=== PATIENT | female | born 1985 | race Caucasian/White ===

== ENCOUNTER 2022-07-03 09:02 | Outpatient (CLI) | payer OTHER, SELFPAY ==
[2022-07-03 10:07] LABS: Kit Draw Collected
== END 2022-07-03 09:03 | disposition home or self-care (01) ==
LOC: ANHGOSHLAB 09:05
PROVIDERS: PCP Internal Medicine; Visit Provider Clinical Nurse Specialist
DX: N93.9 Abnormal uterine and vaginal bleeding, unspecified (principal); R73.9 Hyperglycemia, unspecified; Z13.220 Encounter for screening for lipoid disorders; E55.9 Vitamin D deficiency, unspecified; M35.3 Polymyalgia rheumatica
CPT/HCPCS: 36415

== ENCOUNTER 2023-12-11 08:37 | Outpatient (CLI) | payer BC, SELFPAY ==
--- NOTE | ~2023-12-11 | XR_ITS ---
XR hand LT 2V Ordering provider: Meaghan Linton, PA History: . Pain in unspecified joint, Other fatigue . Comparison: None. FINDINGS: BONES: No acute fracture or dislocation. JOINT SPACES: Well maintained. SOFT TISSUES: Unremarkable. IMPRESSION: No acute osseous abnormality left hand. Reviewed, dictated and finalized at location A.
--- NOTE | ~2023-12-11 | XR_ITS ---
XR hip RT min 2V Ordering provider: Meaghan Linton, PA History: . Pain in unspecified joint, Other fatigue . Comparison: None. FINDINGS: BONES: No acute fracture or dislocation. HIP JOINT SPACES: Normal. PUBIC SYMPHYSIS: Normal. SOFT TISSUES: Normal. IMPRESSION: No acute osseous abnormality pelvis and right hip. Reviewed, dictated and finalized at location A.
--- NOTE | ~2023-12-11 | XR_ITS ---
XR foot RT 2V Ordering provider: Meaghan Linton, PA History: . Pain in unspecified joint, Other fatigue . Comparison: None. FINDINGS: BONES: No acute fracture or dislocation. Calcaneus spur. 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 JOINT SPACES: Normal. No tarsal coalition. SOFT TISSUES: Normal. IMPRESSION: No acute osseous abnormality of the right foot. Reviewed, dictated and finalized at location A.
--- NOTE | ~2023-12-11 | XR_ITS ---
XR hand RT 2V Ordering provider: Meaghan Linton, PA History: . Pain in unspecified joint, Other fatigue . Comparison: None. FINDINGS: BONES: No acute fracture or dislocation. JOINT SPACES: Normal. SOFT TISSUES: Normal. IMPRESSION: No acute osseous abnormality right hand. Reviewed, dictated and finalized at location A.
--- NOTE | ~2023-12-11 | XR_ITS ---
XR foot LT 2V Ordering provider: Meaghan Linton, PA History: . Pain in unspecified joint, Other fatigue . Comparison: None. FINDINGS: BONES: No acute fracture or dislocation. Calcaneal spur. JOINT SPACES: Normal. No tarsal coalition. SOFT TISSUES: Normal. IMPRESSION: No acute osseous abnormality left foot. Reviewed, dictated and finalized at location A.
== END 2023-12-11 08:38 ==
PROVIDERS: PCP Physician Assistant Medical; Visit Provider Physician Assistant Medical
DX: R53.83 Other fatigue (principal); M25.50 Pain in unspecified joint
CPT/HCPCS: 73120; 73502; 73620

== ENCOUNTER 2024-09-22 06:46 | Outpatient (CLI) | payer BC, SELFPAY ==
--- NOTE | ~2024-09-22 | MR_ITS ---
EXAMINATION: MR brain/brain stem wo/w con DATE: 09/22/2024 07:28 INDICATION: Migraine, unspecified, not intractable. TECHNIQUE: Magnetic resonance imaging (MRI) of the brain and brainstem was performed without and with 20 mL ProHance intravenous contrast. COMPARISON: None. FINDINGS: There are scattered areas of nonspecific increased T2-weighted signal intensity in the cere bral white matter, which is within normal limits for the patient's age. There is no intracranial hemo rrhage, acute infarction, or abnormal intracranial mass lesion. The ventricles are normal in size. Th e orbits are normal. The paranasal sinuses are clear. The mastoid air cells are normal. IMPRESSION: 1. Normal brain. Reviewed, dictated and finalized at location A. IMPRESSION: 1. Normal brain.
--- OUTSIDE RECORDS SUMMARY | 2024-09-22 06:51 | XMS_ITS | Referral Summary ---
Author Organization [facility] [address] Address [address] [place] [address] Care Team Providers Care Material Coordinator Name Role Phone Demetrio Kirby DO Primary Care Provider [phone] Marco Williamson MD Unavailable [phone] Encounters Date Type Department Care Team Description 08/30/2024 4:00 PM BOW STAPLER Lab [facility] - Lab Collection [address] [place] [address] Abnormal uterine bleeding (AUB) 08/30/2024 3:45 PM BOW STAPLER Lab [facility] Oncology Lab [address] [place] [address] [address] [place] [address] 08/30/2024 3:15 PM BOW STAPLER Office Visit [facility] Hematology [address] [place] [phone] Aj Simeon MD Abnormal uterine bleeding (AUB); Coagulation test abnormality 08/23/2024 Telephone [facility] Hematology [address] [place] [phone] Liv Land 07/27/2024 9:35 AM BOW STAPLER - 07/27/2024 11:59 PM BOW STAPLER Hospital Encounter [facility] PATHOLOGY [address] [address] Abnormal uterine bleeding (AUB) Discharge Disposition: Discharge to home or self care 07/27/2024 9:00 AM BOW STAPLER Procedure visit [facility] Obstetrics and Gynecology [address] [facility] 1st Floor [address] [place] [address] Yelena Henley MD Abnormal uterine bleeding (AUB) (Primary Dx); Urine test negative 07/13/2024 3:03 PM BOW STAPLER - 07/13/2024 11:59 PM BOW STAPLER Hospital Encounter [facility] [address] [place] [address] Screening mammogram, encounter for Discharge Disposition: Discharge to home or self care from Last 3 Months Allergies Active Allergy Reactions Criticality Noted Date Comments Adhesive Hives Medium 07/15/2022 Paper tape ok, all other types of tape remove layer of skin Sulfa (Sulfonamide Antibiotics) Hives Medium 09/14/2017 Hives Medications cyanocobalamin (Vitamin B-12) 50 mcg tabletIndicati ons:supplement Take 1 tablet (50 mcg total) by mouth every morning Active TIRZEPATIDE, WEIGHT LOSS, SUBQIndication s:wt loss Inject 30 Units under the skin once a week Wednesdays Active ferrous sulfate (IRON ORAL)Indicatio ns:supplement Take 1 tablet by mouth every morning Active progesterone (PROMETRIUM) 100 mg capsule Take 1 capsule (100 mg total) by mouth daily 90 capsule 2 5 07/25/19 26 Active Additional Information Patient taking differently:100 mg oralEvery evening, Indications: Secondary Amenorrhea, Informant: Self, Reported on 09/01/2024 tretinoin (RETIN-A) 0.025 % creamIndicatio ns:Acne Vulgaris Apply 1 Application topically nightly 5 Active cholecalcifero l (Vitamin D3) 5,000 unit tabletIndicati ons:supplement Take 1 tablet (5,000 Units total) by mouth every morning Active magnesium gluconate 200 mg tabletIndicati ons:hypomagnes emia Take 1 tablet (200 mg total) by mouth every evening Active cholecalcifero l 25 mcg (1,000 unit) tablet Take 1 tablet (1,000 Units total) by mouth daily 09/02/19 25 Discontin ued(Thera py completed ) Active Problems Problem Noted Date Diagnosed Date Abnormal uterine bleeding (AUB) 05/29/2024 Polyarthralgia 12/10/2023 Overview (12/17/2023): 11/2023 labs: AVISE JENNI 1:160 (nuclear, homogenous), anti-CL IgM 16 (weak+), anti-B2 glycoprotein IgM 11 (weak+), C3 160 (H), C4 24 11/2023 XR: -Bilat hands: unremarkable -Rt hip: unremarkable -Rt foot: ossification of insertion of the Achilles tendon -Lt foot: calcaneal spur US right hand/wrist (12/16/23): No significant joint effusions, power doppler, tendinopathy, or erosive changes appreciated on US examination. Moderate synovial thickening in the 4th MCP and 3rd PIP joints. An enlarged median nerve at 0.14 cm2 is identified. Assessment & Plan (02/11/2024 4:58 PM CDT): Ms. Bhandari is a 38yo female with PMH of anemia, migraine and DSAP who presented at last visit for evaluation for joint pain and elevated inflammatory markers. Affected joints include her hands, feet and a right lateral hip. Hands are swollen in the AM with associated stiffness that lasts for about 1-1.5hrs before resolving but notes her fingers ache with overuse. Appreciates persistent discomfort across midfeet, worsened with prolonged walking but denies AM swelling. Takes 800mg ibuprofen prn with benefit. Does have a red, bumpy rash that appears on her cheeks/nose but spares the nasolabial folds and worsens with heat/stress - not photosensitive. Additional symptoms/concerns include fatigue, dry/itchy eyes, brain fog, IBS like symptoms, hair loss and ocular migraines. FH significant for mother with RA/SLE and father with RA. Recent autoimmune testing revealed a +JENNI 1:160 with weak positive anti- cardiolipin 16 and anti-beta2 glycoprotein 11. Radiographic imaging of her hands and right hip were unremarkable with a calcaneal spur visualized on the left foot and ossification of the Achilles tendon insertion of the right foot XR. A right hand/wrist US demonstrated only moderate synovial thickening of the 4th MCP and 3rd PIP joints with enlarged median nerve at 0.14cm2 - no significant joint effusions, power doppler, tendinopathy or erosive changes were noted. Based on work up and description of symptoms the patient does not appear to have an underlying autoimmune disease contributing to her symptoms at this time. Would recommend close monitoring of her symptoms given her strong FH for RA/SLE. She is welcome to return in the future for additional evaluation should the need arise. Seen with Dr. Williamson. Assessment & Plan (12/10/2023 3:14 PM CDT): Ms. Bhandari is a 38yo female with PMH of anemia, migraine and DSAP who presents for evaluation for joint pain and elevated inflammatory markers. Affected joints include her hands, feet and a right lateral hip. Hands are swollen in the AM with associated stiffness that lasts for about 1-1.5hrs before resolving but notes her fingers ache with overuse. appreciates persistent discomfort across midfeet, worsened with prolonged walking but denies AM swelling. Takes 800mg ibuprofen prn with benefit. Does have a red, bumpy rash that appears on her cheeks/nose but spares the nasolabial folds and worsens with heat/stress - not photosensitive. Additional symptoms/concerns include fatigue, dry/itchy eyes, brain fog, IBS like symptoms, hair loss and ocular migraines. FH significant for mother with RA/SLE and father with RA. Questionable fullness of the right 1st MCP joint and left 2nd PIP joint on exam with several tender peripheral joints. Erythema with telangiectasias of the bilateral cheeks present sparing the nasolabial folds. There is ttp along the right lateral pelvic rim/ITband origin without ttp over the greater trochanter or ITband. Patient's description of joint symptoms do not sound inflammatory and with a negative JENNI she does not likely have lupus. 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 Will check a broader autoimmune AVISE panel as well as repeat ESR/CRP (which may be influenced due to adiposity) and obtain radiographic imaging of her hands, feet, right hip and a right hand/wrist US to evaluate her joint pain and look for signs of inflammation. To return in [address] Williamson. Pain in pelvis 09/13/2022 Immunizations Immunization Administration Dates Next Due DTaP, Unspecified 11/04/2017 Influenza, Quadrivalent, Melissa l Culture-based MDCK, Preservative Free, Antibiotic Free, Intramuscular 04/07/2023,03/31/2022 Influenza, Quadrivalent, Spl it, Preservative Free, Intramuscular 05/16/2021 MMR 11/24/2018 Moderna SARS-CoV-2 Monovalent Vaccination (12+ Y RS) 03/31/2022 Tdap 03/03/2018 Social History Tobacco Use Types Packs/Day Years Used Date Smoking Tobacco: Never Passive Smoke Exposure: Never Smokeless Tobacco: Never Tobacco Cessation:Counseling Given: Not Answered Comments No Sex and Gender Information Value Date Recorded Sex Assigned at Not on file Legal Sex Female 9:12 PM BOW STAPLER Gender Identity Not on file Sexual Orientation Not on file Last Filed Vital Signs Vital Sign Reading Time Taken Comments Blood Pressure 168/96 08/30/2024 3:08 PM BOW STAPLER Pulse 92 08/30/2024 3:08 PM BOW STAPLER Temperature 36.4 C (97.6 F) 08/30/2024 3:08 PM BOW STAPLER Respiratory Rate 18 08/30/2024 3:08 PM BOW STAPLER Oxygen Saturation 100% 08/30/2024 3:08 PM BOW STAPLER Inhaled Oxygen Concentration - - Weight 134.7 kg (297 lb) 09/01/2024 2:45 PM BOW STAPLER Height 167.6 cm (5' 6 ) 09/01/2024 2:45 PM BOW STAPLER Body Mass Index 47.94 09/01/2024 2:45 PM BOW STAPLER Plan of Treatment Upcoming Encounters Date Type Department Care Team (Latest Contact Info) Description 09/26/2024 7:30 AM CDT Hospital Encounter [facility] Operating [facility] [address] [place] [phone] [place] [address] [place] [address] 09/26/2024 7:30 AM CDT Anesthesia Event [facility]) [address] [place] [address] Peggy Sarkar NP [address] [place] [address] 09/26/2024 7:30 AM CDT - 09/26/2024 8:50 AM CDT Surgery [facility]) [facility] [place] [address] Yelena Henley MD [address] [address] HYSTEROSCOPY DIAGNOSTIC, DILATION AND CURETTAGE Scheduled Procedures Name Priority Associated Diagnoses Date/Ti me HYSTEROSCOPY DIAGNOSTIC Abnormal uterine bleeding (AUB) 09/26/2024 7:30 AM CDT DILATION AND CURETTAGE Abnormal uterine bleeding (AUB) 09/26/2024 7:30 AM CDT Procedures Procedure Name Priority Date/Time Associated Diagnosis Comments EGFR Routine 08/30/2024 4:24 PM BOW STAPLER Abnormal uterine bleeding (AUB) DIFFERENTIAL AUTO Routine 08/30/2024 4:2 4 PM BOW STAPLER Abnormal uterine bleeding (AUB) CBC WITH AUTO DIFFERENTIAL Routine 08/30/2024 4:24 PM BOW STAPLER Abnormal uterine bleeding (AUB) COMPREHENSIVE METABOLIC PANEL Routine 08/30/2024 4:24 PM BOW STAPLER Abnormal uterine bleeding (AUB) FERRITIN Routine 08/30/2024 4:24 PM BOW STAPLER Abnormal uterine bleeding (AUB) IRON PROFILE W/ IBC Routine 08/30/2024 4 :24 PM BOW STAPLER Abnormal uterine bleeding (AUB) MAGNESIUM Routine 08/30/2024 4:24 PM BOW STAPLER Abnormal uterine bleeding (AUB) APTT Routine 08/30/2024 4:24 PM BOW STAPLER Abnormal uterine bleeding (AUB) PROTIME-INR Routine 08/30/2024 4:24 PM BOW STAPLER Abnormal uterine bleeding (AUB) FIBRINOGEN Routine 08/30/2024 4:24 PM BOW STAPLER Abnormal uterine bleeding (AUB) FACTOR VIII ACTIVITY Routine 08/30/2024 4:24 PM BOW STAPLER Abnormal uterine bleeding (AUB) FACTOR IX ACTIVITY Routine 08/30/2024 4: 24 PM BOW STAPLER Abnormal uterine bleeding (AUB) VON WILLEBRAND FACTOR ACTIVITY (SCREEN) Routine 08/30/2024 4:24 PM BOW STAPLER Abnormal uterine bleeding (AUB) VON WILLEBRAND FACTOR ANTIGEN Routine 08/30/2024 4:24 PM BOW STAPLER Abnormal uterine bleeding (AUB) FACTOR XI ACTIVITY Routine 08/30/2024 4: 24 PM BOW STAPLER Abnormal uterine bleeding (AUB) BETA 2 GLYCOPROTEIN IGG AB Routine 08/30/2024 4:24 PM BOW STAPLER Abnormal uterine bleeding (AUB) BETA 2 GLYCOPROTEIN IGM AB Routine 08/30/2024 4:24 PM BOW STAPLER Abnormal uterine bleeding (AUB) CARDIOLIPIN ANTIBODY, IGG Routine 08/30/2024 4:24 PM BOW STAPLER Abnormal uterine bleeding (AUB) CARDIOLIPIN ANTIBODY, IGM Routine 08/30/2024 4:24 PM BOW STAPLER Abnormal uterine bleeding (AUB) LUPUS ANTICOAGULANT PANEL PLUS REFLEXES Routine 08/30/2024 4:24 PM BOW STAPLER Abnormal uterine bleeding (AUB) SURGICAL PATHOLOGY Routine 07/27/2024 9: 35 AM BOW STAPLER Abnormal uterine bleeding (AUB) POCT HCG, URINE Routine 07/27/2024 9:07 AM BOW STAPLER Urine test negative SCREENING MAMMOGRAM BILATERAL W KISHOR Schedule Routine, Read Routine (OP Routine) 07/13/2024 3:17 PM BOW STAPLER Screening mammogram, encounter for from Last 3 Months Results * (ABNORMAL) Lupus Anticoagulant Panel plus Reflexes (08/30/2024 4:24 PM BOW STAPLER) PT 12.2 9.7 - 13.0 sec INR 1.13 0.90 - 1.20 [facility] Comment: Interpretive data Oral anticoagulant therapeutic ranges: Venous thromboembolism prophylaxis or treatment: 2.0-3.0 CARDIOLOGY Standard range: 2.0-3.0 High-intensity range: 2.5-3.5 Refer to indication-specific guidelines for appropriate target ranges for prosthetic heart valve replacement. Current interpretive data was last revised on 2019. aPTT 44(H) 28 - 38 sec [facility] Comment: Interpretive Data Heparin therapeutic range: 66.0 - 100.0 seconds. Range based on correlation with therapeutic heparin activity range of 0.3 - 0.7 Units/mL. Current interpretive data was last revised on 2023. DRVVT screen ratio 1.46(H) 0.00 - 1.20 Ratio [facility] DRVVT confirm ratio 1.03 Ratio [facility] DRVVT S/C Ratio 1.41(H) 0.00 - 1.20 Ratio [facility] SCT Screen Ratio 1.86(H) 0.00 - 1.16 Ratio [facility] SCT Confirm Ratio 1.18 Ratio [facility] SCT S/C Ratio 1.58(H) 0.00 - 1.16 Ratio [facility] Lupus anticoagulant, interp Positive( A) [facility] Comment: Interpretive data Lupus anticoagulants (LA) are acquired autoantibodies that interfere with invitro clotting in a phospholipid-dependent manner and are associated with an increased risk of thromboembolic events and complications. Routine APTT and PT reagents are not sensitive to inhibition by LA, and should not be used as screening tests. The laboratory follows ISTH 2009 guidelines (Pengo, 2009) for LA testing and interpretation: Two sensitive methods performed in parallel improve sensitivity. One activates the intrinsic pathway (Silica-APTT) and one activates the common pathway (dilute Zion's viper venom time - dRVVT). Each method begins with a SCREEN step, and if neither is prolonged, no further testing is performed and the interpretation is: NO LA DETECTED. If either screening test is prolonged, then additional steps are performed to provide specificity. A POSITIVE LA result occurs if either one or both tests produce a positive CONFIRM result. An INDETERMINATE result means results cannot distinguish between coagulopathy and a weak LA. Consider retesting when PT/INR is less prolonged, if clinical indicated. To support laboratory confirmation of antiphospholipid syndrome, persistence of a positive LA result should be verified by repeat testing at least 12 weeks later (Idalia, 2006). Prior to LA testing, the laboratory screens patient plasma samples for evidence of heparin contamination, which is neutralized prior to LA testing, and the following interfering conditions which require canceling LA testing: INR >3.0, fibrinogen < 100 mg/dl, use of direct oral or IV anticoagulants other than heparin. References: 1) Hans V, Skye A, Lizette JH, Orlincoln TL, Shant M, De Thalia PG. Update of the guidelines for lupus anticoagulant detection. J Thromb Haemost. 2009; 7:5721-9560. 2. Idalia Glass et al. International consensus statement on an update of the classification criteria for definite antiphospholipid syndrome (APS). J Thromb Haemost. 2006; 4:295-306. Current interpretive data was last revised on 2018 Blood 08/30/2024 4:24 PM BOW STAPLER 08/30/2024 5:09 PM BOW STAPLER us Aj Simeon MD LAB BLOOD ORDERABLES Final R esult [facility] Department [place] [address] * eGFR (08/30/2024 4:24 PM BOW STAPLER) eGFR 80 >=60 mL/min/1. 73 m2 Comment: Interpretive Data Reference Interval Normal >/= 90 mL/min/1.73m2 Mildly decreased* 60 - 89 mL/min/1.73m2 Mildly to moderately decreased 45 - 59 mL/min/1.73m2 Moderately to severely decreased 30 - 44 mL/min/1.73m2 Severely decreased 15 - 29 mL/min/1.73m2 Kidney Failure < 15 mL/min/1.73m2 *Relative to young adult level Estimated glomerular filtration rate is determined by the 2020 CKD-EPI equation recommended by the National Kidney Foundation (A Unifying Approach to GFR Estimation: Recommendations of the NKF-ASK Task Force on Reassessing the Inclusion of Race in Diagnosing Kidney Disease, JASN 2020). The CKD-EPI equation should not be used for patients with unstable renal function and has not been validated in children and those over 70. Current interpretive data was last reviewed 2021. Blood 08/30/2024 4:24 PM BOW STAPLER 08/30/2024 5:14 PM BOW STAPLER us Aj Simeon MD LAB BLOOD ORDERABLES Final R esult [facility] Department [place] [address] * (ABNORMAL) Differential, auto (08/30/2024 4:24 PM BOW STAPLER) Neutrophil abs 7.0(H) 1.5 - 6.5 K/cumm Comment:Testing performed by : [facility], [address] [place] [phone] Lymphocyte abs 2.0 0.8 - 3.3 K/cumm CERNER BJ Comment:Testing performed by : [facility], [address] [place] [phone] Monocyte abs 0.5 0.2 - 0.8 K/cumm CERNER BJ Comment:Testing performed by : [facility], [address] [place] [phone] Eosinophil abs 0.1 0.0 - 0.5 K/cumm CERNER BJ Comment:Testing performed by : [facility], [address] [place] [phone] Basophil abs 0.1 0.0 - 0.1 K/cumm CERNER BJ Comment:Testing performed by : [facility], [address] [place] [phone] Neutrophil pct 72.4 % CERNER BJ Comment: Interpretive Data Percent cell count reference ranges are not reported, since discordance with absolute values may lead to misinterpretation of CBC data. Current Interpretive Data was last revised on 2017. Testing performed by: [facility], [address] [place] [phone] Lymphocyte pct 20.2 % [facility] Comment: Interpretive Data Percent cell count reference ranges are not reported, since discordance with absolute values may lead to misinterpretation of CBC data. Current Interpretive Data was last revised on 2017. Testing performed by: [facility], [address] [place] [phone] Monocyte pct 5.3 % [facility] Comment: Interpretive Data Percent cell count reference ranges are not reported, since discordance with absolute values may lead to misinterpretation of CBC data. Current Interpretive Data was last revised on 2017. Testing performed by: [facility], [address] [place] [phone] Eosinophil pct 1.2 % [facility] Comment: Interpretive Data Percent cell count reference ranges are not reported, since discordance with absolute values may lead to misinterpretation of CBC data. Current Interpretive Data was last revised on 2017. Testing performed by: [facility], [address] [place] [phone] Basophil pct 0.9 % [facility] Comment: Interpretive Data Percent cell count reference ranges are not reported, since discordance with absolute values may lead to misinterpretation of CBC data. Current Interpretive Data was last revised on 2017. Testing performed by: [facility], [address] [place] [phone] Blood 08/30/2024 4:24 PM BOW STAPLER 08/30/2024 4:28 PM BOW STAPLER us Aj Simeon MD LAB BLOOD ORDERABLES Final R esult [facility] Department [place] [address] * Cardiolipin antibody, IgG (08/30/2024 4:24 PM BOW STAPLER) Cardiolipin, IgG 1.8 <=19.9 GPL U/mL Comment: Interpretive Data Negative: <20 GPL U/mL Positive: > or = 20 GPL U/mL Anticardiolipin antibodies are associated with certain clinical events including unexplained arterial and venous thromboemboli, and unexplained morbidity. However, detection of low levels of anticardiolipin antibodies occurs in both healthy individuals and patients with co-morbidities not associated with the antiphospholipid antibody (APA) syndrome including inflammatory and infectious conditions. In order to improve specificity, the International Congress on Antiphospholipid Antibodies recommends ACL antibodies of IgG or IgM isotype present in medium or high titer (e.g. > 40 GPL, or >the 99th percentile), on two or more occasions, at least 12 weeks apart, to support a diagnosis of antiphospholipid syndrome. The cutoff for this assay was developed from data based on the 99th percentile. In addition, the International Congress on Antiphospholipid Antibodies does not recommend testing for IgA FADY. These results were obtained with the [employer] 2200 System. Cardiolipin IgG values obtained with different manufacturers' assay methods may not be used interchangeably. Current interpretive data was last revised on 2016. Blood 08/30/2024 4:24 PM BOW STAPLER 08/30/2024 5:56 PM BOW STAPLER us Aj Simeon MD LAB BLOOD ORDERABLES Final R esult [facility] Department [place] [address] * Beta 2 glycoprotein IgM Ab (08/30/2024 4:24 PM BOW STAPLER) [facility] Beta-2 glycoprotein I, IgM 8.3 <=19.9 units/mL Comment: Interpretive Data Negative: <20 U/mL Positive: > or = 20 U/mL Beta- 2 glycoprotein 1 (Beta-2 GP1) antibodies are a more specific marker of thrombotic risk. It is expected that some samples will be ACL positive and Beta- 2 GP1 negative. In order to improve specificity, the International Congress on Antiphospholipid Antibodies recommends Beta-2 GP1 antibodies of IgG or IgM isotype (> the 99th percentile), obtained twice, at least 12 weeks apart, to support a diagnosis of antiphospholipid syndrome. The cutoff for this assay was developed from data based on the 99th percentile. The Beta-2 GP1 IgM test can produce false positive results due to cross-reactivity with Rheumatoid factor. These results were obtained with the [employer] 2200 System. Beta-2 GP1 IgM values obtained with different manufacturers' assay methods may not be used interchangeably. Current interpretive data was last revised on 2016. Blood 08/30/2024 4:24 PM BOW STAPLER 08/30/2024 5:56 PM BOW STAPLER Aj Simeon MD LAB BLOOD ORDERABLES Final R esult Performing Organization Address [facility] Co de Phone Number [facility] [address] * Beta 2 glycoprotein IgG Ab (08/30/2024 4:24 PM BOW STAPLER) [facility] Beta-2 glycoprotein I, IgG 1.8 <=19.9 units/mL Comment: Interpretive Data Negative: <20 U/mL Positive: > or = 20 U/mL Beta-2 glycoprotein 1 (Beta-2 GP1) antibodies are a more specific marker of thrombotic risk. It is expected that some samples will be ACL positive and Beta- 2 [id number]. In order to improve specificity, the International Congress on Antiphospholipid Antibodies recommends Beta-2 GP1 antibodies of IgG or IgM isotype (> the 99th percentile), obtained twice, at least 12 weeks apart, to support a diagnosis of antiphospholipid syndrome. The cutoff for this assay was developed from data based on the 99th percentile. These results were obtained with the [employer] 2200 System. Beta 2GP1 IgG values obtained with different manufacturers' assay methods may not be used interchangeably. Current interpretive data was last revised on 2016. Blood 08/30/2024 4:24 PM BOW STAPLER 08/30/2024 5:56 PM BOW STAPLER Aj Simeon MD LAB BLOOD ORDERABLES Final R esult Performing Organization Address [facility] Co de Phone Number [facility] [place] [address] * (ABNORMAL) Iron profile w/ IBC (08/30/2024 4:24 PM BOW STAPLER) Pathologist [facility] Iron 31(L) 35 - 145 mcg/dL TIBC 202(L) 250 - 400 mcg/dL [facility] Transferrin saturation 15(L) 20 - 50 % [facility] Blood 08/30/2024 4:24 PM BOW STAPLER 08/30/2024 5:09 PM BOW STAPLER us Aj Simeon MD LAB BLOOD ORDERABLES Final R esult [facility] Department [place] [address] * (ABNORMAL) CBC with auto differential (08/30/2024 4:24 PM BOW STAPLER) [facility] WBC 9.7 3.8 - 9.9 K/cumm Comment:Testing performed by : [facility], [address] [place] [address] Hgb 12.1 11.9 - 15.5 g/dL [facility] Comment:Testing performed by : [facility], [address] [place] [address] Hct 36.3 35.6 - 45.5 % [facility] Comment:Testing performed by : [facility], [address] [place] [address] Plt 402(H) 150 - 400 K/cumm [facility] Comment:Testing performed by : [facility], [address] [place] [address] MPV 8.6 6.8 - 10.4 fL [facility] Comment:Testing performed by : [facility], [address] [place] [address] RBC 4.55 3.90 - 5.20 M/cumm [facility] Comment:Testing performed by : [facility], [address] [place] [address] MCV 79.8(L) 81.3 - 96.4 fL [facility] Comment:Testing performed by : [facility], [address] [place], [place] [phone] MCH 26.6(L) 27.1 - 33.3 pg [facility] Comment:Testing performed by : [facility], [address] [place], [place] [phone] MCHC 33.4 32.3 - 35.7 g/dL [facility] Comment:Testing performed by : [facility], [address] [place] [address] RDW CV 14.0 11.1 - 14.9 % [facility] Comment:Testing performed by : [facility], [address] [place], [place] [phone] NRBC abs 0.00 0.00 - 0.01 K/cumm [facility] Comment:Testing performed by : [facility], [address] [place], [place] [phone] Blood 08/30/2024 4:24 PM BOW STAPLER 08/30/2024 4:28 PM BOW STAPLER Aj Simeon MD LAB BLOOD ORDERABLES Final R esult Performing Organization Address City/[facility] Co de Phone Number [facility] Department [place] [address] * Von Willebrand factor antigen (08/30/2024 4:24 PM BOW STAPLER) vWF antigen 116 55 - 200 %norm Comment: Interpretive Data vWF Ag results may be negatively biased when rheumatoid factor levels are >50 IU/ml. Current interpretive data was last revised 2024. Blood 08/30/2024 4:24 PM BOW STAPLER 08/30/2024 5:09 PM BOW STAPLER Aj Simeon MD LAB BLOOD ORDERABLES Final R esult [facility] Department [place] [address] * Cardiolipin antibody, IgM (08/30/2024 4:24 PM BOW STAPLER) Cardiolipin, IgM 13.5 <=19.9 MPL U/mL Comment: Interpretive Data Negative: <20 MPL U/mL Positive: > or = 20 MPL U/mL Anticardiolipin antibodies are associated with certain clinical events including unexplained arterial and venous thromboemboli, and unexplained morbidity. However, detection of low levels of anticardiolipin antibodies occurs in both healthy individuals and patients with co-morbidities not associated with the antiphospholipid antibody (APA) syndrome including inflammatory and infectious conditions. In order to improve specificity, the International Congress on Antiphospholipid Antibodies recommends ACL antibodies of IgG or IgM isotype present in medium or high titer (e.g. > 40 MPL, or >the 99th percentile), on two or more occasions, at least 12 weeks apart, to support a diagnosis of antiphospholipid syndrome. The cutoff for this assay was developed from data based on the 99th percentile. In addition, the International Congress on Antiphospholipid Antibodies does not recommend testing for IgA FADY. The ACL IgM test can produce false positive results due to cross-reactivity with Rheumatoid factor, dsDNA or certain infectious disease antibodies. These results were obtained with the [employer]eva[employer]or 2200 System. Cardiolipin IgM values obtained with different manufacturers' assay methods may not be used interchangeably. Current interpretive data was last revised on 2016. Blood 08/30/2024 4:24 PM BOW STAPLER 08/30/2024 5:56 PM BOW STAPLER us Aj Simeon MD LAB BLOOD ORDERABLES Final R esult [facility] Department [place] [address] * Von Willebrand factor activity (08/30/2024 4:24 PM BOW STAPLER) vWF activity 98 50 - 180 %norm Comment: Interpretive Data Von Willebrand factor (vWF) has two major physiologic functions: transporting factor VIII and adhering to platelets and collagen at sites of vascular injury. Screening tests for von Willebrand disease (vWD) include measuring vWF antigen concentration, plasma factor VIII activity, and in-vitro tests of vWF activity. An automated immunoassay (Instrumentation Laboratory von Willebrand factor activity: IL vWF act), is a sensitive screening test for vWF adhesion to platelets. Using a monoclonal antibody specific for the platelet binding domain of vWF, the IL vWF act test shows excellent discrimination between control and patients with vWF(1, 2). The IL vWF activity reference interval (based on healthy adult sample) is 50%-180%. To enhance specificity and minimize false positive results, if a patient has an IL vWF activity below 50%, the reflex confirmatory activity test (vWF GP1bM) will be sent to [facility] reference laboratory in [place], [place] (3). 1. Son ENCARNACION, yasmani JENKINS. A new automated screening assay for the diagnosis of von Willebrand disease. Am J Clin Path. 2007; 127:730-5. 2. Alyson D, Linda JI, Tano BJ, Katelyn RK, Kelin TAVARES, Magda JA. Validation of an automated latex particle-enhanced immunoturbidimetric von Willebrand factor activity assay. J Thromb Haemost. 2011; 9:0038-8996. 3. Eboni Gill, et al. A comparative analysis of different automated von Willebrand factor glycoprotein 1b-binding activity assays in well-typed von Willebrand disease patients. J Thromb Haemost 2018;16:1268-77. Current interpretive data was last revised on 2021. Blood 08/30/2024 4:24 PM BOW STAPLER 08/30/2024 5:09 PM BOW STAPLER us Aj Simeon MD LAB BLOOD ORDERABLES Final R esult [facility] Department [place] [address] * (ABNORMAL) aPTT (08/30/2024 4:24 PM BOW STAPLER) aPTT 44(H) 28 - 38 sec Comment: Interpretive Data Heparin therapeutic range: 66.0 - 100.0 seconds. Range based on correlation with therapeutic heparin activity range of 0.3 - 0.7 Units/mL. Current interpretive data was last revised on 2023. Blood 08/30/2024 4:24 PM BOW STAPLER 08/30/2024 5:09 PM BOW STAPLER Aj Simeon MD LAB BLOOD ORDERABLES Final R esult Performing Organization Address [facility] de Phone Number [facility] [place] [employer] [place] [address] * Protime-INR (08/30/2024 4:24 PM BOW STAPLER) PT 11.8 9.7 - 13.0 sec INR 1.09 0.90 - 1.20 [facility] Comment: Interpretive data Oral anticoagulant therapeutic ranges: Venous thromboembolism prophylaxis or treatment: 2.0-3.0 CARDIOLOGY Standard range: 2.0-3.0 High-intensity range: 2.5-3.5 Refer to indication-specific guidelines for appropriate target ranges for prosthetic heart valve replacement. Current interpretive data was last revised on 2019. Blood 08/30/2024 4:24 PM BOW STAPLER 08/30/2024 5:09 PM BOW STAPLER Aj Simeon MD LAB BLOOD ORDERABLES Final R esult Performing Organization Address [facility] [place] [address] * (ABNORMAL) Fibrinogen (08/30/2024 4:24 PM BOW STAPLER) Fibrinogen 450(H) 170 - 400 mg/dL Blood 08/30/2024 4:24 PM BOW STAPLER 08/30/2024 5:09 PM BOW STAPLER Aj Simeon MD LAB BLOOD ORDERABLES Final R esult Performing Organization Address [facility] de Phone Number [facility] [place] [place] [address] * Factor XI activity (08/30/2024 4:24 PM BOW STAPLER) Factor XI activity 104 60 - 140 %norm Blood 08/30/2024 4:24 PM BOW STAPLER 08/30/2024 5:09 PM BOW STAPLER Aj Simeon MD LAB BLOOD [place]AB[place] [address] * Factor IX activity (08/30/2024 4:24 PM BOW STAPLER) Factor IX activity 124 55 - 160 %norm Blood 08/30/2024 4:24 PM BOW STAPLER 08/30/2024 5:09 PM BOW STAPLER Aj Simeon MD LAB BLOOD ORDERABLES Final R esult Performing Organization Address City/[facility] [place] [address] * Factor VIII activity (08/30/2024 4:24 PM BOW STAPLER) Factor VIII activity 122 45 - 160 %norm Blood 08/30/2024 4:24 PM BOW STAPLER 08/30/2024 5:09 PM BOW STAPLER Aj Simeon MD LAB BLOOD ORDERABLES Final R esult Performing Organization Address City/[facility] Co [place] [address] * Magnesium (08/30/2024 4:24 PM BOW STAPLER) Magnesium 2.0 1.4 - 2.5 mg/dL Blood 08/30/2024 4:24 PM BOW STAPLER 08/30/2024 5:09 PM BOW STAPLER Aj Simeon MD LAB BLOOD ORDERABLES Final R esult Performing Organization Address City/[facility] Co de Phone Number [facility] [place] [address] * Ferritin (08/30/2024 4:24 PM BOW STAPLER) Pathologist [facility] Ferritin 29 13 - 150 ng/mL Blood 08/30/2024 4:24 PM BOW STAPLER 08/30/2024 5:09 PM BOW STAPLER Aj Simeon MD LAB BLOOD ORDERABLES Final R [facility] Performing Organization Address [facility] de Phone Number [facility] [place] [address] * Comprehensive metabolic panel (08/30/2024 4:24 PM BOW STAPLER) [facility] Sodium 142 135 - 145 mmol/L Potassium, pl 3.9 3.3 - 4.9 mmol/L [facility] Chloride 105 97 - 110 mmol/L [facility] CO2 28 22 - 32 mmol/L [facility] Anion gap 9 2 - 15 mmol/L [facility] BUN 6 6 - 25 mg/dL [facility] Creatinine 0.93 0.60 - 1.10 mg/dL [facility] Glucose 92 70 - 199 mg/dL [facility] Comment: Interpretive Data Fasting glucose >/= 126 mg/dl is diagnostic for diabetes. Fasting is defined as no caloric intake for at least 8 hours. Fasting glucose between 100 mg/dl to 125 mg/dl is diagnostic of prediabetes. In a patient with classic symptoms of hyperglycemia or hyperglycemic crisis, a random glucose >/= 200 mg/dl is diagnostic for diabetes. In the absence of unequivocal hyperglycemia, results should be confirmed by repeat testing. The classification and Diagnosis of Diabetes Diabetes Care 2021; 46: S19-S40. Current interpretive data was last revised 2022. Calcium 9.4 8.5 - 10.3 mg/dL [facility] Bilirubin, total 0.3 0.1 - 1.2 mg/dL [facility] Protein, pl 7.2 6.5 - 8.5 g/dL [facility] Albumin 4.0 3.5 - 5.0 g/dL [facility] Alk phos 75 40 - 130 Units/L [facility] ALT 10 7 - 45 Units/L [facility] AST 17 10 - 45 Units/L [facility] Blood 08/30/2024 4:24 PM BOW STAPLER 08/30/2024 5:09 PM BOW STAPLER us Aj Simeon MD LAB BLOOD ORDERABLES Final R esult [facility] Department [place] [address] * Surgical pathology (07/27/2024 9:35 AM BOW STAPLER) Tissue (Endometrial biopsy) 07/27/2024 9:35 AM BOW STAPLER 07/28/2024 7:09 AM BOW STAPLER Narrative PATHOLOGY [facility] - 08/01/2024 3:36 PM BOW STAPLER EPIC results best viewed via link to PDF [facility] [place] [address] Note to Patients: This report may contain a detailed description of human tissue sent by a health care provider to the laboratory for pathologic evaluation. The content of this report is essential for diagnosis and may provide important critical findings. This information may be unfamiliar to patients to review without a medical professional present. It is advised that the patient review this report in the presence of a health care provider who can answer questions and explain the details. SURGICAL PATHOLOGY REPORT FINAL Patient Name: IRIS BHANDARI Gender: F : 1985 (Age: 38) Address: [address] [place], [place] [id number] Hospital #: [id number] Taken:07/27/2024 Received:07/28/2024 Reported: 08/01/2024 Patient Type: [facility] SPECIMEN Service: Obstetrics Location: Physician(s): Yelena Henley M.D. Diagnosis: Uterus, endometrium, biopsy - Fragment of endometrium with extensive squamous morular metaplasia (see comment) - Background endometrium with exogenous progestin effect ud/07/31/2024 07:01 By this signature, I attest that the above diagnosis is based upon my personal examination of the slides(and/or other material indicated in the diagnosis). Neha Hopson MD Report Electronically Reviewed and Signed Out By Neha Hopson MD 08/01/2024 15:36:33 Microscopic Description and Comment: The sections show multiple fragments of endometrium with exogenous progestin effect. One of the fragments contains extensive squamous morular metaplasia with central necrosis, associated with dilated and irregularly shaped endometrial glands with mild cytologic atypia. Squamous morular metaplasia can be seen in a variety of non-neoplastic conditions. However, when extensive, as in this case, it has been shown to be associated with atypical endometrial hyperplasia or endometrioid adenocarcinoma. Clinical correlation is recommended. This case was also reviewed by Dr. Barrera Pedroza who agrees with the diagnosis. Patrick Unger M.D. History: The patient is a 38-year-old woman presenting for abnormal uterine bleeding; on exogeneous progestins. Operative procedure: Endometrial biopsy. Specimen(s) Received: A: Endometrial biopsy Gross Description: Received in formalin, labeled with the patient s identifiers and endometrial biopsy is portion of red and singh tissue admixed with hemorrhagic material (measuring 2.9 by 1.7 x 0.3 cm in aggregate). Labeled A1. Jar 0. [facility]/07/28/2024 11:35 PA(s): Veronika Vidales By this signature, I attest that the above diagnosis is based upon my personal examination of the slides(and/or other material). Addenda/Procedures The performance characteristics of some immunohistochemical stains, fluorescence in-situ hybridization tests and immunophenotyping by flow cytometry cited in this report (if any) were determined by the Surgical Pathology and Flow Cytometry Departments at [facility] as part of an ongoing manufacturing quality manager program and in compliance with federally mandated regulations drawn from the Clinical Laboratory Improvement Act of 1988 (CLIA '88). Some of these tests rely on the use of analyte specific reagents and are subject to specific labeling requirements by the US Food and Drug Administration. Such diagnostic tests may only be performed in a facility that is certified by the Department of Health and Human Services as a high complexity laboratory under CLIA '88. The FDA has determined that such clearance or approval is not necessary. This test is used for clinical purposes. It should not be regarded as investigational or for research. Nevertheless, federal rules concerning the medical use of analyte specific reagents require that the following disclaimer be attached to the report: This test was developed and its performance characteristics determined by the Surgical Pathology and Flow Cytometry Departments of [facility]. It has not been cleared or approved by the U. S. Food and Drug Administration. IMAGES AND SCANNED DOCUMENTS, IF INCLUDED, ONLY VIEWABLE IN PDF VERSION OF REPORT Yelena Henley MD LAB PATHOLOGY ORDERAB LES Final Result PATHOLOGY [facility] 3rd Floor [place], [place] [phone] * POCT hCG, urine (07/27/2024 9:07 AM BOW STAPLER) HCG, ur, POC Negative Negative Lot Number [id number] QC Backgroud Clear Acceptable QC Control Line Acceptable Urine 07/27/2024 9:07 AM BOW STAPLER Yelena Henley MD POINT OF CARE TEST OR DERABLES Final Result * Screening Mammogram Bilateral W Kishor (07/13/2024 3:17 PM BOW STAPLER) Anatomical Region Laterality Modality Breast Bilateral Mammography Impressions 07/13/2024 3:25 PM BOW STAPLER BI-RADS ATLAS category (overall): 1 - Negative There is no mammographic evidence of malignancy. A 1 year screening mammogram is recommended. The patient has been or will be contacted. We recommend annual screening mammography for women at average risk of breast cancer beginning at age 40, based on guidelines of the [employer] (ACR Practice Parameter for the Performance of Screening and Diagnostic Mammography) and [place] [employer]. For women with and elevated risk of breast cancer, please refer to the ACR Practice Parameter for specific screening recommendations. The patient will be entered into a reminder system with a target due date of 1 year for her next screening exam. Narrative 07/13/2024 3:25 PM BOW STAPLER Screening Mammogram Bilateral W Kishor: 07/13/24 The study was acquired using full field digital technology and interpreted from soft copy. 2D digital mammographic views, as well as 3D digital tomosynthesis were performed in the CC and MLO projections. This study was resulted using Computer-Aided Detection (CAD). CLINICAL: Screening mammogram, encounter for. No relevant medical history has been documented for this patient. No known family history of breast cancer. COMPARISON: Baseline Screening Mammography. No prior mammography is available for comparison. BREAST TISSUE: There are scattered areas of fibroglandular density. FINDINGS: No suspicious masses, suspicious calcifications, or other suspicious findings are seen within either breast. us Self Screening Mammogram IMG MAMMO PROCEDURES Fi nal Result from Last 3 Months Insurance [place] Care Teams Material Coordinator Relationship Specialty Start Date End Date Demetrio Kirby DO PCP - General Internal Medicine 11/01/23 Marco Williamson MD [address] [place] [address] Consulting Physician Rheumatology 11/01/23
--- OUTSIDE RECORDS SUMMARY | 2024-09-22 06:51 | XMS_ITS | Data Portability ---
Author Organization [facility] [employer] , [facility] Address [address] [place] [address] Care Team Providers Care Supervisor Shop Name Role Phone [facility] Operations Recruiter Assessment Encounter Date Assessment Date Assessment LastModified by Organization Details LastModified Time 05/19/2022 05/19/2022 AUB Discussed the various causes of abnormal uterine bleeding, including polyps, fibroids, hyperplasia, atypia, anovulation, hormonal imbalance. Reviewed the typical evaluation with hormonal assessment, pelvic USG and endometrial biopsy. Biopsy procedure reviewed in detail. Recommended premedication with NSAIDs. Briefly discussed the options available for treatment depending on the results of evaluation. Suggested menstrual diary and bleeding precautions. Return for f/u with labs and US results for EMBx . [email or web address] Not available 05/31/2022 11:44:06 06/09/2022 06/09/2022 To bring in thrombophilia w/u results from [facility] US and lab reports reviewed. EMBx with Pap done today Bleeding precautions Slynd sample provided- instructed on usage, start today TXA prn Heavy VB return 2 weeks for f/u [email or web address] Not available 07/09/2022 12:36:37 07/06/2022 07/06/2022 . Results f EMB and PAP reviewed. Endometrial polyp noted on Bx results. No significant clinical improvement with OCPs. Reviewed H/S polypectomy and D&C -procedure details with risks, benefits and complications. nursing home treatment options including hormonal treatment (OCPs, progestins), Mirena IUD, endometrial ablation, and surgery discussed as well. Patient desires to preserve fertility - Declined ablation but considering Mirena but unsure. Desires to report back with plans regarding Mirena. Suggested menstrual diary and bleeding precautions. TXA prn heavy flow Nika request for H/S with polypectomy and D&C ADRIAN. kthanapandan Not available 07/09/2022 12:50:34 08/07/2022 08/07/2022 slynd sample Postop & bleeding precautions/ pelvic rest Path reviewed. P for bleeding control reviewed. [email or web address] Not available 10/04/2022 19:11:20 Plan of Treatment Reminders Order Date Submit Date Provider Last Modified By Organization Details Last Modified Time Details Appointments None recorde d. Lab biopsy, tissue 2021 022 [employer] [facility], [address] [place], [address], 17:44:05 HPV E6+E7 mRNA, qualita tive PCR, cervix 2021 022 [employer] Matthew, [address] [place], [address], 2 11:00:01 pap, LB 2021 022 [employer] [facility], [address] [place], [address], 2 16:06:28 STI panel - urine 2021 022 [employer] Matthew, [address] [place], [address], 2 18:01:42 unliste d lab - abnorma l uterine bleedin g evaluat ion panel ([facility]) 2021 022 [employer] [place] Matthew, [address] [place], [address], 2 14:39:23 CBC w/ auto diff 2021 023 [employer] Matthew, [address] [place], [address], 3 14:21:37 lh + FSH, serum - fasting AM lab 2021 022 [employer] Matthew, [address] [place], [address], 2 14:48:22 prolact in, serum - fasting AM labs 2021 022 [facility] Rafael Hernandez Matthew, [address] [place], [address], 2 14:48:19 PT/PTT, plasma 2021 022 [email or web address] [facility], [address] [facility], [place], [address], 3 12:21:44 CMP, serum or plasma 2021 022 [email or web address] Rafael Hernandez Matthew, [address] [place], [address], 2 18:01:18 Referral None recorde d. Procedures biopsy, endomet rium (PROC) 2021 022 [email or web address] Not available 2 14:06:05 Surgeries None recorde d. Imaging US, transva ginal 2021 022 [email or web address] Not available 3 15:19:23 Medication Orders tranexa victoria acid 650 mg tablet 2022 023 [place] [address] [id number], [address], [place], [id number], 3 16:47:36 Slynd 4 mg (28) tablet 2022 023 [email or web address] [facility] #88277, [address], [place], [id number], 3 12:02:48 tranexa victoria acid 650 mg tablet 2021 022 [place] [address] [facility]94851, [address], [place], [id number], 3 16:47:36 Patient TargetsNo targets recorded. Patient Instructions Encounter Date Encounter Id Patient Instructions Last Modified By Organization Details Last Modified Time 05/19/2022 [id number] abnormal uterine bleeding: care instructions [email or web address] Not available 05/19/2022 15:10:54 Reason for Referral None Reported. Results Created Date Observation Date Name Description Value Unit Range Abnormal Flag Note LastModifiedBy Organization Detail LastModifiedTime 05/28/20 22 05/28/2022 PROTH ROMBI N W/INR + PARTI AL THROM BOPLA STIN TIMES partial thromboplast in time, activated 40 sec 23-32 high This test has not been valid ated for monit oring unfra ction ated hepar in thera py. For testi ng that is valid ated for this type of thera py, carolina e refer to the Hepar in Anti- Xa assay (test code 76367 ). For addit ional carolina diane e refer to http: //[facility] jagjit cabral.Mario stDia gnost ics.c om/fa q/FAQ 159 (This link is being provi ded for tatum hollingsworth nal/e sera pastor purpo ses only. ) Not Available [facility] [address] [place], [address], 05/28/2022 11:58:22 05/28/20 22 05/28/2022 PROTH ROMBI N W/INR + PARTI AL THROM BOPLA STIN TIMES INR 1.0 normal Refer ence Range 0.9-1 .1 Moder ate-i ntens ity Warfa rin Thera py 2.0-3 .0 Highe r-int ensit y Warfa rin Thera py 3.0-4 .0 Not Available [facility] [address] [place], [address], 05/28/2022 11:58:22 05/28/20 22 05/28/2022 PROTH ROMBI N W/INR + PARTI AL THROM BOPLA STIN TIMES PT 10.6 sec 9.0-11 .[address] to have a clau nata copy faxed has been stefania douglas ed. [place] to: [phone] NO COLLE CTION DATE RECEI ESTELA. WE HAVE USED THE DATE THE SPECI MEN WAS RECEI ESTELA BY THIS LABOR ATORY THE COLLE CTION DATE. IF THIS IS INCOR RECT, PLEAS E CONTA CT CLIEN T SERVI SOFÍA. PHONE NUMBE R: [phone] Not Available [facility] [address] [place], [address], 05/28/2022 11:58:22 05/27/20 22 05/28/2022 PROLA CTIN prolactin 6.9 NG/mL Refer ence Range s Femal e aged 18-Ad ult Nonpr egnan t: 2.8-2 9.2 ng/mL Pregn ant: 9.7-2 08.5 ng/mL Post- menop ausal : 1.8-2 0.3 ng/mL Pregn jazmin, lacta tion, and the admin istra tion of oral contr acept ignacia can incre ase prola ctin joe ntrat ions. Not Available [facility] [place], [address], 05/28/2022 14:48:19 05/27/20 22 05/28/2022 FSH AND LH FSH 7.4 mIU/m L Refer ence Range s are for femal es aged 18 years - Adult Larissa l Menst ruati ng Femal e: Folli cular phase : 2.5-1 0.2 mIU/m L Mid-C ycle Peak: 3.4-3 3.4 mIU/m L Lutea l phase : 1.5-9 .1 mIU/m L Pregn ant: <0.3 mIU/m L Post- menop ausal : 23.0- 116.6 mIU/m L Not Available [facility] [place], [address], 05/28/2022 14:48:22 05/27/20 22 05/28/2022 FSH AND LH LH 7.34 U/L Refer ence Range s are for femal es aged 18 years - Adult Larissa l Menst ruati ng Femal e: Folli cular phase : 1.9-1 2.5 mIU/m L Mid-C ycle Peak: 8.7-7 6.3 mIU/m L Lutea l phase : 0.5-1 6.9 mIU/m L Pregn ant: <0.1- 1.5 mIU/m L Post- menop ausal : 15.9- 54.0 mIU/m L Contr acept ignacia: 0.7-5 .6 mIU/m L Not Available [address], [address], 05/28/2022 14:48:22 06/02/20 22 06/03/2022 COMPR EHENS CINDY METAB OLIC PANEL sodium 141 mmol/ L 136 - 145 normal Not Available [address], [address], 06/03/2022 14:45:38 06/02/20 22 06/03/2022 COMPR EHENS CINDY METAB OLIC PANEL potassium 4.6 mmol/ L 3.5 - 5.1 normal Not Available [address], [address], 06/03/2022 14:45:38 06/02/20 22 06/03/2022 COMPR EHENS CINDY METAB OLIC PANEL chloride 103 mmol/ L 98 - 107 normal Not Available [address], [address], 06/03/2022 14:45:38 06/02/20 22 06/03/2022 COMPR EHENS CINDY METAB OLIC PANEL glucose 82 mg/dL 74 - 106 normal Not Available [address], [address], 06/03/2022 14:45:38 06/02/20 22 06/03/2022 COMPR EHENS CINDY METAB OLIC PANEL carbon dioxide 30 mmol/ L 20 - 32 normal Not Available [address], [address], 06/03/2022 14:45:38 06/02/20 22 06/03/2022 COMPR EHENS CINDY METAB OLIC PANEL calcium 8.8 mg/dL 8.5 - 10.1 normal Not Available [address], [address], 06/03/2022 14:45:38 06/02/20 22 06/03/2022 COMPR EHENS CINDY METAB OLIC PANEL creatinine 0.76 mg/dL 0.60 - 1.00 normal Not Available [address], [address], 06/03/2022 14:45:38 06/02/20 22 06/03/2022 COMPR EHENS CINDY METAB OLIC PANEL eGFR 103 mL/mi n/1.7 3m2 >60 normal The eGFR is based on the CKD-E PI 2020 wolf hinojosa. To calcu late the new eGFR from a previ ous Creat inine or Cysta tin C resul t, go to https ://bella nieto/fidel pastor s/cristian qi/gf r_cal culat or Not Available [address], [address], 06/03/2022 14:45:38 06/02/20 22 06/03/2022 COMPR EHENS CINDY METAB OLIC PANEL AST 23 U/L 32 - 40 low Not Available [address], [address], 06/03/2022 14:45:38 06/02/20 22 06/03/2022 COMPR EHENS CNIDY METAB OLIC PANEL ALT 29 U/L 14 - 59 normal Not Available [address], [address], 06/03/2022 14:45:38 06/02/20 22 06/03/2022 COMPR EHENS CINDY METAB OLIC PANEL alk phos 78 U/L 46 - 116 normal Not Available [address], [address], 06/03/2022 14:45:38 06/02/20 22 06/03/2022 COMPR EHENS CINDY METAB OLIC PANEL albumin 3.5 g/dL 3.4 - 5.0 normal Not Available [address], [address], 06/03/2022 14:45:38 06/02/20 22 06/03/2022 COMPR EHENS CINDY METAB OLIC PANEL protein, total 6.8 g/dL 6.4 - 8.2 normal Not Available [address], [address], 06/03/2022 14:45:38 06/02/20 22 06/03/2022 COMPR EHENS CINDY METAB OLIC PANEL bilirubin, total 0.5 mg/dL 0.2 - 1.0 normal Not Available [address], [address], 06/03/2022 14:45:38 06/02/20 22 06/03/2022 COMPR EHENS CINDY METAB OLIC PANEL urea nitrogen (BUN) 9 mg/dL 6 - 31 normal Not Available [address], [address], 06/03/2022 14:45:38 06/02/20 22 06/03/2022 CBC (INCL UDES DIFF/ PLT) WBC 9.4 thous and/u L 4.0 - 9.8 normal Not Available [address], [address], 06/03/2022 17:36:35 06/02/20 22 06/03/2022 CBC (INCL UDES DIFF/ PLT) RBC 4.7 merrick on/uL 3.9 - 4.9 normal Not Available [address], [address], 06/03/2022 17:36:35 06/02/20 22 06/03/2022 CBC (INCL UDES DIFF/ PLT) hemoglobin 12.5 g/dL 11.8 - 14.8 normal Not Available [address], [address], 06/03/2022 17:36:35 06/02/20 22 06/03/2022 CBC (INCL UDES DIFF/ PLT) hematocrit 39.8 % 35.5 - 44.0 normal Not Available [address], [address], 06/03/2022 17:36:35 06/02/20 22 06/03/2022 CBC (INCL UDES DIFF/ PLT) MCV 84.5 fL 82.0 - 99.0 normal Not Available [address], [address], 06/03/2022 17:36:35 06/02/20 22 06/03/2022 CBC (INCL UDES DIFF/ PLT) MCH 26.5 pg 27.2 - 32.6 low Not Available [address], [address], 06/03/2022 17:36:35 06/02/20 22 06/03/2022 CBC (INCL UDES DIFF/ PLT) MCHC 31.4 g/dL 31.5 - 35.5 low Not Available [address], [address], 06/03/2022 17:36:35 06/02/20 22 06/03/2022 CBC (INCL UDES DIFF/ PLT) RDW-CV 13.4 % 11.5 - 14.5 normal Not Available [address], [address], 06/03/2022 17:36:35 06/02/20 22 06/03/2022 CBC (INCL UDES DIFF/ PLT) platelet 332 thous and/u L 140 - 350 normal Not Available [address], [address], 06/03/2022 17:36:35 06/02/20 22 06/03/2022 CBC (INCL UDES DIFF/ PLT) MPV 11.2 fL 9.3 - 12.4 normal Not Available [address], [address], 06/03/2022 17:36:35 06/02/20 22 06/03/2022 CBC (INCL UDES DIFF/ PLT) absolute neutrophil 7.00 thous and/u L 1.90 - 7.00 normal Not Available [address], [address], 06/03/2022 17:36:35 06/02/20 22 06/03/2022 CBC (INCL UDES DIFF/ PLT) absolute lymphocyte 1.58 thous and/u L 0.70 - 4.50 normal Not Available [address], [address], 06/03/2022 17:36:35 06/02/20 22 06/03/2022 CBC (INCL UDES DIFF/ PLT) absolute monocyte 0.57 thous and/u L 0.10 - 1.30 normal Not Available [address], [address], 06/03/2022 17:36:35 06/02/20 22 06/03/2022 CBC (INCL UDES DIFF/ PLT) absolute eosinophil 0.14 thous and/u L <0.70 normal Not Available [address], [address], 06/03/2022 17:36:35 06/02/20 22 06/03/2022 CBC (INCL UDES DIFF/ PLT) absolute basophil 0.02 thous and/u L <0.20 normal Not Available [address], [address], 06/03/2022 17:36:35 06/02/20 22 06/03/2022 CBC (INCL UDES DIFF/ PLT) absolute immature granulocyte 0.04 thous and/u L <0.03 high Not Available Rafael Hernandez Matthew [address] [place], [address], 06/03/2022 17:36:35 06/09/20 22 06/10/2022 HPV HIGH RISK HPV high risk Negati ve negati ve normal The HPV High Risk assay is inten ded for use as co-te sting with cytol ogy and not as a subst itute for regul ar cervi kota cytol ogy scree danielle. This assay is not inten ded for use as a scree danielle devic e for women under age 30 with larissa l cervi kota cytol ogy. Not Available Rafael Hernandez Matthew [address] [place], [address], 06/10/2022 17:56:46 06/09/20 22 06/12/2022 TISSU E PATHO LOGY pathologist Ventura Krause M.D., Board Certi fied in [facility]ato [facility] Patho logy and Clini kota Patho logy. Phone (elec troni c signa ture) Not Available [address] [address] [place], [address], 06/12/2022 17:44:05 06/09/20 22 06/12/2022 TISSU E PATHO LOGY A source Endom etriu m, biops y Not Available [facility] [address] [place], [address], 06/12/2022 17:44:05 06/09/20 22 06/12/2022 TISSU E PATHO LOGY A gross description Speci men is recei estela in forma munir, label ed with multi ple patie nt ident ifier s and consi sts of multi ple fragm ents of soft tissu e aggre gatin g to 3.0 x 2.5 x 0.4 cm, irreg ular in shape and singh-b rown in color . The speci men is entir jessa submi tted in one casse tte. Gross exam( s) perfo rmed at: [facility] [place] [address] [place] [address] AY, [place] [address] [facility]: MAYO Paredes MD Not Available [address] [address] [place], [address], 06/12/2022 17:44:05 06/09/20 22 06/12/2022 TISSU E PATHO LOGY A diagnosis Benig n disor dered proli ferat cindy endom etriu m with endom etria l polyp . No featu res diagn ostic of hyper plasi a or malig daniel . Not Available [address] [address] [place], [address], 06/12/2022 17:44:05 06/09/20 22 06/14/2022 THINP REP TIS PAP clinical information: normal None given Not Available [address] [address] [place], [address], 06/14/2022 16:06:28 06/09/20 22 06/14/2022 THINP REP TIS PAP LMP: normal NONE GIVEN Not Available [address] [address] [place], [address], 06/14/2022 16:06:28 06/09/20 22 06/14/2022 THINP REP TIS PAP prev. Pap: normal NONE GIVEN Not Available [address] [address] [place], [address], 06/14/2022 16:06:28 06/09/20 22 06/14/2022 THINP REP TIS PAP prev. BX: normal NONE GIVEN Not Available [address] [address] [place], [address], 06/14/2022 16:06:28 06/09/20 22 06/14/2022 THINP REP TIS PAP source: normal Endoc ervix Not Available [address] [address] [place], [address], 06/14/2022 16:06:28 06/09/20 22 06/14/2022 THINP REP TIS PAP statement of adequacy: normal Satis facto ry for evalu ation . Endoc ervic al/tr ansfo rmati on zone compo nent prese nt. Age and/o r menst rual statu s not provi ded Not Available [address] [address] [place], [address], 06/14/2022 16:06:28 06/09/20 22 06/14/2022 THINP REP TIS PAP interpretati on/result: normal Negat cindy for intra epith elial lesio n or malig daniel . Not Available [address] [address] [place], [address], 06/14/2022 16:06:28 06/09/20 22 06/14/2022 THINP REP TIS PAP comment: normal This case could not be evalu ated with compu ter bryce daniel techn ology . The slide was akash orlando fe accor daya to lion chavez . Not Available [address] [address] [place], [address], 06/14/2022 16:06:28 06/09/20 22 06/14/2022 THINP REP TIS PAP cytotechnolo gist: normal MMW, CT( CP) CT scree danielle locat ion: [place] [address] [place] [address] Not Available [address] [address] [place], [address], 06/14/2022 16:06:28 06/09/20 22 06/14/2022 THINP REP TIS PAP comment EXPLA NATOR Y NOTE: The Pap is a scree danielle test for cervi kota cance r. It is not a diagn ostic test and is subje ct to false negat cindy and false posit cindy resul ts. It is most relia ble when a satis facto ry sampl e, regul tamara obtai fe, is submi tted with relev ant clini kota findi ngs and histo ry, and when the Pap resul t is evalu ated along with histo john and curre nt clini kota infor darrick cabral. Not Available [address] [address] [place], [address], 06/14/2022 16:06:28 07/07/1907/08/2022 PROTH ROMBI N W/INR + PARTI AL THROM BOPLA STIN TIMES partial thromboplast in time, activated 36 sec 23-32 high This test has not been valid ated for monit oring unfra ction ated hepar in thera py. For testi ng that is valid ated for this type of thera py, carolina e refer to the Hepar in Anti- Xa assay (test code 21008 ). For addit ional joser carolina carmichael e refer to http: //[facility] jagjit Hoff stDia gnost ics.c om/fa q/FAQ 159 (This link is being provi ded for tatum hollingsworth nal/e ducat iongris purpo ses only. ) Not Available [address] [address] [address] , [place], [address], 07/08/2022 04:37:19 07/07/1907/08/2022 PROTH ROMBI N W/INR + PARTI AL THROM BOPLA STIN TIMES INR 1.0 normal Refer ence Range 0.9-1 .1 Moder ate-i ntens ity Warfa rin Thera py 2.0-3 .0 Highe r-int ensit y Warfa rin Thera py 3.0-4 .0 Not Available [address] [address] [place], [address], 07/08/2022 04:37:19 07/07/19 23 07/08/2022 PROTH ROMBI N W/INR + PARTI AL THROM BOPLA STIN TIMES PT 10.0 sec 9.0-11 .5 normal Not Available [facility] [address] [address], [place], [address], 07/08/2022 04:37:19 06/12/20 22 06/09/2022 US, trans vagin al No observ ation record ed. ricenogle Sabi [address], [place], [address], 07/01/2022 17:00:06 09/17/19 23 09/16/2022 US, trans vagin al No observ ation record ed. [email or web address] [address], [place], [address], 09/18/2022 22:39:29 Result Notes None recorded. Problems Name Problem SNOMED Code Status Onset Date Resolution Date Notes Provider Name and Address Organization Details Recorded Time Pain in pelvis 12095107 Active 023 JARET Landon [address] [place], [address] , [facility] 09/13/2022 22:02:19 Problem Notes None recorded. Procedures Surgical History Date Name Laterality Status Provider Name and Address Organization Details Recorded Time 07/24/19 23 Hysteroscopy dx sep proc completed Kimberley Taylor [facility] 08/07/2022 15:21:15 07/24/19 23 cervical polypectomy completed Kimberley Taylor [facility] 08/07/2022 15:21:44 07/24/19 23 Dilation and curettage completed Kimberley Taylor [facility] 08/07/2022 15:23:13 06/09/20 22 Endometrial Biopsy completed KAY HARRIS MD [address] [place], [address], [facility] 06/09/2022 15:18:23 06/09/20 22 Date of Last Pap Smear completed Lashae Lebron [facility] 09/07/2022 11:16:45 10/16/19 18 Gall bladder completed Laxmi Salazar [facility] 05/19/2022 13:52:58 05/08/20 11 D & C completed Laxmi Salazar [place] [facility] 05/19/2022 13:52:58 Imaging Results Imaging Date Name Status LastModified by Organization Details LastModified Time 06/09/2022 US, transvaginal completed ricenogle Sabi [address], [place], [address], 07/01/2022 17:00:06 09/16/2022 US, transvaginal completed [email or web address] [address], [place], [address], 09/18/2022 22:39:29 Procedure Notes None recorded. Medical Equipment None Reported. Allergies Allergen ID Allergen Name Allergen Category Reaction Reaction Severity Criticality Documentation Date Start Date Code Code System Note Provider Name and Address Organization Details Recorded Time 129344 Substance with sulfonami de structure and antibacte rial mechanism of action (substanc e) medicatio n Not available Not available Not available 05/19/20222015 17682 8003 SNOMED Not Available Not Available Not Available Medications Name Sig Start Date Stop Date Status Note LastModified by Organization Details LastModified Time ciprofloxac in 0.3 % eye drops USE 1 DROP IN RIGHT EYE EVERY 2 HOURS TODAY AND TOMORROW THAN TAPER FOUR TIMES DAILY FOR 3 DAYS 05/19 completed Not Available Not Available Not Available neomycin-po lymyxin-dex ameth 3.5 mg/mL-10,00 0 unit/mL-0.1 % eye drops INSTILL 1 DROP 4 TIMES DAILY INTO AFFECTED EYE(S) FOR 4 DAYS 05/19 completed Not Available Not Available Not Available ibuprofen 600 mg tablet 600 mg every 6 hours by oral route. 07/30 completed Not Available Not Available Not Available methylpredn isolone 4 mg tablets in a dose pack FOLLOW PACKAGE DIRECTION S 09/07 completed Not Available Not Available Not Available albuterol sulfate HFA 90 mcg/actuati on aerosol inhaler INHALE 1 PUFF BY MOUTH EVERY 4 HOURS NEEDED FOR SHORTNESS OF BREATH OR WHEEZING active Not Available Not Available No t Available amoxicillin 875 mg-potassiu m clavulanate 125 mg tablet TAKE 1 TABLET BY MOUTH EVERY 12 HOURS 09/07 completed Not Available Not Available Not Available multivitami n active Not Available Not Available Not Available cholecalcif kali (vitamin D3) 25 mcg (1,000 unit) tablet 1 {tbl} by oral route. active Not Available Not Available No t Available tranexamic acid 650 mg tablet Take 650 mg 3 times a day by oral route. 08/07 completed Not Available Not Available Not Available Slynd 4 mg (28) tablet Take 1 tablet every day by oral route for 30 days. 2022 active Not Available Not Available Not Avai lable Vitals Date Recorded Body height Body mass index (BMI) Body weight Systolic blood pressure Diastolic blood pressure Provider Name and Address Organization Details Last Updated DateTime 05/19/2022 170.18 cm 53.1 kg/m2 722576.8 1 g 124 mm[Hg] 82 mm[Hg] Laxmi Gueraannnilam [facility] 2 14:38:02 Date Recorded Body height Body mass index (BMI) Body weight Body temperature Systolic blood pressure Diastolic blood pressure Provider Name and Address Organization Details Last Updated DateTime 2 170.18 cm 53.8 kg/m2 778344. 9 g 97.8 [degF] 122 mm[Hg] 72 mm[Hg] Kimberley Taylor [facility] 2 14:17:55 Date Recorded Body height Body mass index (BMI) Body weight Body temperature Systolic blood pressure Diastolic blood pressure Provider Name and Address Organization Details Last Updated DateTime 3 170.18 cm 53.4 kg/m2 459170. 72 g 97.8 [degF] 130 mm[Hg] 84 mm[Hg] Brianna Memo [facility] 3 16:32:36 Date Recorded Body height Body mass index (BMI) Body weight Body temperature Systolic blood pressure Diastolic blood pressure Provider Name and Address Organization Details Last Updated DateTime 3 170.18 cm 54 kg/m2 311251. 37 g 97.7 [degF] 129 mm[Hg] 86 mm[Hg] Brianna Memo [facility] 3 16:48:54 Date Recorded Body height Body mass index (BMI) Body weight Body temperature Systolic blood pressure Diastolic blood pressure Provider Name and Address Organization Details Last Updated DateTime 3 170.18 cm 53.3 kg/m2 577549. 41 g 98 [degF] 126 mm[Hg] 78 mm[Hg] Lashae Lebron [facility] 3 11:12:53 Social History Question Answer Notes LastModified by Organizat ion Details LastModified Time Tobacco Smoking Status Former Smoker Laxmi Salazar wilfredo, [facility] 05/19/2022 13:52:58 What Is Your Level Of Alcohol Consumption? Occasional Information not available 05/19/2022 How Many Times Per Week Do You Consume Alcohol? 1-2 Times Per Week Information not available 05/19/2022 How Many Years Have You Consumed Alcohol? 18 Information not available 05/19/2022 Are You Blind Or Do You Have Difficulty Seeing? No Information not available 05/19/2022 Are You Currently Employed? Yes Information not available 05/19/2022 Are You Deaf Or Do You Have Serious Difficulty Hearing? No Information not available 05/19/2022 What Type Of Diet Are You Following? VEGETARIAN Information not available 05/19/2022 Do You Or Have You Ever Used E-cigarettes Or Vape? Never Used Electronic Cigarettes Information not available 05/19/2022 What Is The Highest Grade Or Level Of School You Have Completed Or The Highest Degree You Have Received? 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 11-15yearssinc elastcigarette Information not available 05/19/2022 How Many Children Do You Have? 0 Information not available 05/19/2022 What Is Your Relationship Status? Information not available 05/19/2022 Are You Sexually Active? Yes Information not available 05/19/2022 At What Age Did You Start Smoking Tobacco? 22 Information not available 05/19/2022 Do You Or Have You Ever Used Smokeless Tobacco? Never Used Smokeless Tobacco Information not available 05/19/2022 How Much Tobacco Do You Smoke? 0.25 PPD Information not available 05/19/2022 What Types Of Sporting Activities Do You Participate In? Tennis, Hiking, Walking Information not available 05/19/2022 Do You Use Any Illicit Or Recreational Drugs? No Information not available 05/19/2022 How Many Years Have You Smoked Tobacco? 2 Information not available 05/19/2022 Have You Used IV Drugs? No Information not available 05/19/2022 Do You Or Have You Ever Used Any Other Forms Of Tobacco Or Nicotine? No Information not available 05/19/2022 Sex: Unknown Functional Status Question Answer Note LastModified by Organizat ion Details LastModified Time What is your exercise level? Occasional Information not available 05/19/2022 Mental Status None recorded. Family History Relationship Description Onset Age of this Age Resolved Age Notes LastModified by Organization Details LastModified Time Father Hypertensive disorder [email or web address] Not available 2021 13:52:57 Medical History Condition Response Headaches/migraines Y Gynecological History Statement/Question Response Flow Heavy Date of last HPV 06/09/2022 Date of LMP 08/27/2022 HPV Vaccine N Duration of Flow (days) 28 Most Recent Mammogram Current Control Method BCPs Age at Menarche 11 Date of Last Colonoscopy Most Recent Bone Density Frequency of Cycle (Q days) 0 Date of Last Pap Smear 06/09/2022 Obstetrics History GPAL:G 5 P 0 0 5 0 Type Value Spontaneous 5 Living 0 Total 5 Immunizations Vaccine Type Date Status Note Provider Nam e and Address Organization Details Recorded Time DTaP, 5 pertussis antigens 8 completed Not Available [facility] 07/26/2022 08:23:38 Influenza, split virus, trivalent, preservative 2 completed Not Available [facility] 07/26/2022 08:23:38 COVID-19, mRNA, LNP-S, PF, 100 mcg/0.5mL dose or 50 mcg/0.25mL dose 2 completed Not Available [facility] 07/26/2022 08:23:38 Past Encounters Encounter ID Performer Location Encounter Start Date Encounter Closed Date Diagnosis/Indication Diagnosis SNOMED-CT Code Diagnosis ICD10 Code Diagnosis Note [id number] KAY MANN MD [facility] [address] [place] [address] 05/19/2022 13:29:04 05/19/2022 15:56:10 Disorder of menstruation 519416460 N92.6 Abnormal u terine bleeding unrelated to menstrual cycle 440387322 N93.8 Venereal d isease screening 411971208 Z11.3 [id number] [facility] [address] [place] [address] 06/09/2022 13:47:20 07/10/2022 15:19:23 Abnormal uterine bleeding 0711628076 9100 N93.9 Screening for malignant neoplasm of cervix 952115158 Z12.4 [id number] KAY MANN MD [facility] [address] [place] [address] 07/06/2022 16:12:44 07/23/2022 14:45:55 Menorrhagia 177818543 N92.0 [id number] KAY MANN MD [facility] [address] [place] [address] 08/07/2022 16:30:18 08/18/2022 15:29:33 Postoperative visit 679835357 Z09 Abnormal u terine bleeding 2638602909 9100 N93.9 [id number] JARET Landon [facility] [address] [place] [address] 09/07/2022 11:08:46 09/07/2022 12:41:09 Pain in pelvis 67961290 R10.2 Schedule UsPatient case to submit [place] Health Concerns Section Related Observation LastModified by Organization Detai ls LastModified Time None Recorded Concern Status LastModified by Organization Details LastModified Time None Recorded Advance Directives Directive None Recorded Payers Encounter Date Sequence Insurance Name Policy Number Policy Dewitt Covered Member ID Dewitt Member ID Guarantor Name 05/19/2022 1 [facility] [id number] Iris Dominick [id number] Iris Dominick 06/09/2022 1 [facility] [id number] Iris Dominick [id number] Iris Dominick 07/06/2022 1 [facility] [id number] Iris Dominick [id number] Iris Dominick 08/07/2022 1 [facility] [id number] Iris Odminick [id number] Iris Dominick 09/07/2022 1 [facility] [id number] Iris Dominick [id number] Iris Dominick Notes Date Note Type Note Provider Name and Address Organization Details Recorded Time 05/19/2022 text/html Abnormal BleedingReported bypatient.Onset/Timing :past 6+ cycles Duration:almost daily Quality:light; passing clots;irregular;heavy pt states she stopped doing fertility treatments at [facility] 2 years ago, went 6 months with no period, then started and has had bleeding almost daily the last 18 months, sometimes its light others its very heavy and she is passing clots. continuous VB x 18 m, light to heavy, no pattern, clots+pelvic pressureno PCB Last Pap/ HPV 2019- wnlWt gain 4 lbno increased facial hair KAY HARRIS MD [address] [facility], [place], [address], [employer] [facility] 05/31/2022 11:44:22 06/09/2022 text/html Patient is here to get an EMB for abnormal uterine bleeding. 36 year old G5A5 with hx of AUB- continuous VB x 18 months following 6 m of amenorrhea after fertility tx Last Pap/ HPV 2019- wnlNormal FSH prolactin, CBC/ CMP. Slightly elevated PTT. US today- normal uterus , thickened endometrium and simple L ov cyst < 2 cm KAY HARRIS MD [address] [facility], [place], [address], [employer] [facility] 07/09/2022 12:36:51 07/06/2022 text/html 36 year old G5A5 being evaluated for AUB- continuous VB x 20 months following 6 m of amenorrhea after fertility tx Pap/ HPV neg 06/09/2022EMBx 06/09- disordered proliferative endometrium with benign polyp, no hysperplasia or atypia Started on Slynd after EMB.Pt reports passing blood clots and heavy bleeding with abdominal pain lately. Feeling overwhelmed and frustrated by this continuous VB. KAY HARRIS MD [facility] [place], [address], [facility] [employer] [facility] 07/09/2022 12:50:37 08/07/2022 text/html Post-OpReported bypatient.Associated Symptoms:incision healing well; no fatigue; normal appetite; normal bowel function; no constipation; no nausea; no emesis; pain improving; no pain; no fever; no bleeding; no lower extremity edema/pain; no dysuria/urinary symptoms Patient is here to be seen after having a Hysteroscopy and D&C done on 07/24/2022.Pt reports feeling well.No significant VB. 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
--- OUTSIDE RECORDS SUMMARY | 2024-09-22 06:51 | XMS_ITS | Clinical Summary ---
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 Will check a broader autoimmune AVISE panel as well as repeat ESR/CRP (which may be influenced due to adiposity) and obtain radiographic imaging of her hands, feet, right hip and a right hand/wrist US to evaluate her joint pain and look for signs of inflammation. To return in [address] Williamson. Pain in pelvis 09/13/2022 Encounters Date Type Department Care Team Description 08/30/2024 4:00 PM CHISEL GRINDER Lab [facility] Cancer [place] - Lab Collection [id number] [address] [address] Abnormal uterine bleeding (AUB) 08/30/2024 3:45 PM CHISEL GRINDER Lab [facility] [address] [place] [address] [address] [place] [address] 08/30/2024 3:15 PM CHISEL GRINDER Office Visit [facility] [address] [place] [phone] Aj Simeon MD Abnormal uterine bleeding (AUB); Coagulation test abnormality 08/23/2024 Telephone [facility] [address] [place] [phone] Liv Land 07/27/2024 9:35 AM CHISEL GRINDER - 07/27/2024 11:59 PM CHISEL GRINDER Hospital Encounter [facility]Y [address] [facility] [address] [place] [address] Abnormal uterine bleeding (AUB) Discharge Disposition: Discharge to home or self care 07/27/2024 9:00 AM CHISEL GRINDER Procedure visit [facility] [address] [facility] 1st Floor [address] [place] [address] Yelena Henley MD Abnormal uterine bleeding (AUB) (Primary Dx); Urine test negative 07/13/2024 3:03 PM CHISEL GRINDER - 07/13/2024 11:59 PM CHISEL GRINDER Hospital Encounter [facility] Breast Imaging [address] [place] [phone] Screening mammogram, encounter for Discharge Disposition: Discharge to home or self care from Last 3 Months Immunizations Immunization Administration Dates Next Due DTaP, Unspecified 11/04/2017 Influenza, Quadrivalent, Melissa l Culture-based MDCK, Preservative Free, Antibiotic Free, Intramuscular 04/07/2023,03/31/2022 Influenza, Quadrivalent, Spl it, Preservative Free, Intramuscular 05/16/2021 MMR 11/24/2018 Moderna SARS-CoV-2 Monovalent Vaccination (12+ Y RS) 03/31/2022 Tdap 03/03/2018 Surgical History Surgery Date Site/Laterality Comments TONSILLECTOMY AND ADENOIDECTOMY CHOLECYSTECTOMY DILATION AND CURETTAGE OF UTERUS x2 WISDOM TOOTH EXTRACTION POLYPECTOMY Medical History Medical History Date Comments Migraine Blood clotting disorder PONV (postoperative nausea and vomiting) Family History Medical History Relation Name Comments Stomach cancer Mother's Sister Anesthesia problems Neg Hx Relation Name Status Comments Mother's Sister Social History Tobacco Use Types Packs/Day Years Used Date Smoking Tobacco: Never Passive Smoke Exposure: Never Smokeless Tobacco: Never Tobacco Cessation:Counseling Given: Not Answered Comments No Sex and Gender Information Value Date Recorded Sex Assigned at Not on file Legal Sex Female 9:12 PM CHISEL GRINDER Gender Identity Not on file Sexual Orientation Not on file Obstetrics History Para Term AB IAB SAB Ectopic Multiple Livin g Live Births 4 4 4 Date Outcome GA Total Labor Labor/2nd/3rd Weight Sex Type Anes PTL Radha A1 A5 Name Clin 2010 SAB Demise 2012 SAB Demise 2017 SAB Demise 2019 SAB Demise Last Filed Vital Signs Vital Sign Reading Time Taken Comments Blood Pressure 168/96 08/30/2024 3:08 PM CHISEL GRINDER Pulse 92 08/30/2024 3:08 PM CHISEL GRINDER Temperature 36.4 C (97.6 F) 08/30/2024 3:08 PM CHISEL GRINDER Respiratory Rate 18 08/30/2024 3:08 PM CHISEL GRINDER Oxygen Saturation 100% 08/30/2024 3:08 PM CHISEL GRINDER Inhaled Oxygen Concentration - - Weight 134.7 kg (297 lb) 09/01/2024 2:45 PM CHISEL GRINDER Height 167.6 cm (5' 6 ) 09/01/2024 2:45 PM CHISEL GRINDER Body Mass Index 47.94 09/01/2024 2:45 PM CHISEL GRINDER Plan of Treatment Upcoming Encounters Date Type Department Care Team (Latest Contact Info) Description 09/26/2024 7:30 AM CDT Hospital Encounter [facility] [address] [place] [address] Yelena Henley MD [address] [facility] [address] [place] [address] 09/26/2024 7:30 AM CDT Anesthesia Event [facility] [address] [place] [address] Peggy Sarkar NP [address] [place] [address] 09/26/2024 7:30 AM CDT - 09/26/2024 8:50 AM CDT Surgery [facility] [address] [place] [address] Yelena Henley MD [address] [address] HYSTEROSCOPY DIAGNOSTIC, DILATION AND CURETTAGE Scheduled Procedures Name Priority Associated Diagnoses Date/Ti me HYSTEROSCOPY DIAGNOSTIC Abnormal uterine bleeding (AUB) 09/26/2024 7:30 AM CDT DILATION AND CURETTAGE Abnormal uterine bleeding (AUB) 09/26/2024 7:30 AM CDT Health Maintenance Due Date Last Done Comments Cervical Cancer Screening 1983 Depression Screening 1983 Hepatitis C Screening 1983 Varicella Vaccines (1 of 2 - 13+ 2-dose series) 10/15/1996 Hepatitis B Screening 10/15/2001 Regular Well Visit/Exam 18-64 10/15/2001 Pneumococcal vaccine <65 (1 of 2 - PCV) 10/15/2002 Zoster Vaccine (1 of 2) 10/15/2002 Covid-19 Vaccine ( season) 2024 04/07/2023, 03/31/2022, 03/31/2022, Additional history exists Influenza Vaccine (#1) 2024 , 03/31/2022, 05/16/2021 Breast Cancer Screening-Mammogram 07/13/2025 07/13/2024 DTaP/Tdap/Td Vaccine (3 - Td or Tdap) 03/03/2028 03/03/2018, 11/04/2017 HPV Vaccines Aged Out No longer eligi ble based on patient's age to complete this topic Procedures Procedure Name Priority Date/Time Associated Diagnosis Comments EGFR Routine 08/30/2024 4:24 PM CHISEL GRINDER Abnormal uterine bleeding (AUB) DIFFERENTIAL AUTO Routine 08/30/2024 4:2 4 PM CHISEL GRINDER Abnormal uterine bleeding (AUB) CBC WITH AUTO DIFFERENTIAL Routine 08/30/2024 4:24 PM CHISEL GRINDER Abnormal uterine bleeding (AUB) COMPREHENSIVE METABOLIC PANEL Routine 08/30/2024 4:24 PM CHISEL GRINDER Abnormal uterine bleeding (AUB) FERRITIN Routine 08/30/2024 4:24 PM CHISEL GRINDER Abnormal uterine bleeding (AUB) IRON PROFILE W/ IBC Routine 08/30/2024 4 :24 PM CHISEL GRINDER Abnormal uterine bleeding (AUB) MAGNESIUM Routine 08/30/2024 4:24 PM CHISEL GRINDER Abnormal uterine bleeding (AUB) APTT Routine 08/30/2024 4:24 PM CHISEL GRINDER Abnormal uterine bleeding (AUB) PROTIME-INR Routine 08/30/2024 4:24 PM CHISEL GRINDER Abnormal uterine bleeding (AUB) FIBRINOGEN Routine 08/30/2024 4:24 PM CHISEL GRINDER Abnormal uterine bleeding (AUB) FACTOR VIII ACTIVITY Routine 08/30/2024 4:24 PM CHISEL GRINDER Abnormal uterine bleeding (AUB) FACTOR IX ACTIVITY Routine 08/30/2024 4: 24 PM CHISEL GRINDER Abnormal uterine bleeding (AUB) VON WILLEBRAND FACTOR ACTIVITY (SCREEN) Routine 08/30/2024 4:24 PM CHISEL GRINDER Abnormal uterine bleeding (AUB) VON WILLEBRAND FACTOR ANTIGEN Routine 08/30/2024 4:24 PM CHISEL GRINDER Abnormal uterine bleeding (AUB) FACTOR XI ACTIVITY Routine 08/30/2024 4: 24 PM CHISEL GRINDER Abnormal uterine bleeding (AUB) BETA 2 GLYCOPROTEIN IGG AB Routine 08/30/2024 4:24 PM CHISEL GRINDER Abnormal uterine bleeding (AUB) BETA 2 GLYCOPROTEIN IGM AB Routine 08/30/2024 4:24 PM CHISEL GRINDER Abnormal uterine bleeding (AUB) CARDIOLIPIN ANTIBODY, IGG Routine 08/30/2024 4:24 PM CHISEL GRINDER Abnormal uterine bleeding (AUB) CARDIOLIPIN ANTIBODY, IGM Routine 08/30/2024 4:24 PM CHISEL GRINDER Abnormal uterine bleeding (AUB) LUPUS ANTICOAGULANT PANEL PLUS REFLEXES Routine 08/30/2024 4:24 PM CHISEL GRINDER Abnormal uterine bleeding (AUB) SURGICAL PATHOLOGY Routine 07/27/2024 9: 35 AM CHISEL GRINDER Abnormal uterine bleeding (AUB) POCT HCG, URINE Routine 07/27/2024 9:07 AM CHISEL GRINDER Urine test negative SCREENING MAMMOGRAM BILATERAL W KISHOR Schedule Routine, Read Routine (OP Routine) 07/13/2024 3:17 PM CHISEL GRINDER Screening mammogram, encounter for from Last 3 Months Results * (ABNORMAL) Lupus Anticoagulant Panel plus Reflexes (08/30/2024 4:24 PM CHISEL GRINDER) PT 12.2 9.7 - 13.0 sec INR 1.13 0.90 - 1.20 DAVION [facility] Comment: Interpretive data Oral anticoagulant therapeutic ranges: Venous thromboembolism prophylaxis or treatment: 2.0-3.0 CARDIOLOGY Standard range: 2.0-3.0 High-intensity range: 2.5-3.5 Refer to indication-specific guidelines for appropriate target ranges for prosthetic heart valve replacement. Current interpretive data was last revised on 2019. aPTT 44(H) 28 - 38 sec DAVION AARON Comment: Interpretive Data Heparin therapeutic range: 66.0 - 100.0 seconds. Range based on correlation with therapeutic heparin activity range of 0.3 - 0.7 Units/mL. Current interpretive data was last revised on 2023. DRVVT screen ratio 1.46(H) 0.00 - 1.20 Ratio [facility] DRVVT confirm ratio 1.03 Ratio [facility] DRVVT S/C Ratio 1.41(H) 0.00 - 1.20 Ratio [facility] SCT Screen Ratio 1.86(H) 0.00 - 1.16 Ratio [facility] S[facility] Confirm Ratio 1.18 Ratio [facility] S[facility] S/C Ratio 1.58(H) 0.00 - 1.16 Ratio [facility] Lupus anticoagulant, interp Positive( A) [facility] Comment: Interpretive data Lupus anticoagulants (LA) are acquired autoantibodies that interfere with invitro clotting in a phospholipid-dependent manner and are associated with an increased risk of thromboembolic events and complications. Routine APTT and PT reagents are not sensitive to inhibition by LA, and should not be used as screening tests. The laboratory follows ISTH 2009 guidelines (Hans, 2009) for LA testing and interpretation: Two [...] anticoagulants other than heparin. References: 1) Hans Treadwell, Skye A, Cresson JH, Ormasoudl TL, Shant M, De Thalia PG. Update of the guidelines for lupus anticoagulant detection. J Thromb Haemost. 2009; 7:9368-0392. 2. Idalia S. et al. International consensus statement on an update of the classification criteria for definite antiphospholipid syndrome (APS). J Thromb Haemost. 2006; 4:295-306. Current interpretive data was last revised on 2018 Blood 08/30/2024 4:24 PM CHISEL GRINDER 08/30/2024 5:09 PM CHISEL GRINDER us Aj Simeon MD LAB BLOOD ORDERABLES Final R esult Performing Organization Address City/State/[facility] Co de Phone Number DAVION CALDERON [facility] Department [place] [address] * eGFR (08/30/2024 4:24 PM CHISEL GRINDER) eGFR 80 >=60 mL/min/1. 73 m2 Comment: [...] of Race in Diagnosing Kidney Disease, JASN 202). The CKD-EPI equation should not be used for patients with unstable renal function and has not been validated in children and those over 70. Current interpretive data was last reviewed 2021. Blood 08/30/2024 4:24 PM CHISEL GRINDER 08/30/2024 5:14 PM CHISEL GRINDER Aj Simeon MD LAB BLOOD ORDERABLES Final R esult DAVION AARON [facility] Department [place] [address] * (ABNORMAL) Differential, auto (08/30/2024 4:24 PM CHISEL GRINDER) Neutrophil abs 7.0(H) 1.5 - 6.5 K/cumm Comment:Testing performed by : [facility], [address] [place] [phone] Lymphocyte abs 2.0 0.8 - 3.3 K/cumm CERNER BJ Comment:Testing performed by : [facility], [address] [place] [phone] Monocyte abs 0.5 0.2 - 0.8 K/cumm CERNER BJ Comment:Testing performed by : [facility], [address] [place] [phone] Eosinophil abs 0.1 0.0 - 0.5 K/cumm CERNER BJ Comment:Testing performed by : [facility], [address] [place] [phone] Basophil abs 0.1 0.0 - 0.1 K/cumm CERNER BJ Comment:Testing performed by : [facility], [address] [place] [phone] Neutrophil pct 72.4 % CERNER BJ Comment: Interpretive Data Percent cell count reference ranges are not reported, since discordance with absolute values may lead to misinterpretation of CBC data. Current Interpretive Data was last revised on 2017. Testing performed by: [facility], [address] [place] [phone] Lymphocyte pct 20.2 % CERNER BJ Comment: Interpretive Data Percent cell count reference ranges are not reported, since discordance with absolute values may lead to misinterpretation of CBC data. Current Interpretive Data was last revised on 2017. Testing performed by: [facility], [address] [place] [phone] Monocyte pct 5.3 % CERNER BJ Comment: Interpretive Data Percent cell count reference ranges are not reported, since discordance with absolute values may lead to misinterpretation of CBC data. Current Interpretive Data was last revised on 2017. Testing performed by: [facility], [address] [place] [phone] Eosinophil pct 1.2 % DAVION AARON Comment: Interpretive Data Percent cell count reference ranges are not reported, since discordance with absolute values may lead to misinterpretation of CBC data. Current Interpretive Data was last revised on 2017. Testing performed by: [facility], [address] [place] [phone] Basophil pct 0.9 % DAVION AARON Comment: Interpretive Data Percent cell count reference ranges are not reported, since discordance with absolute values may lead to misinterpretation of CBC data. Current Interpretive Data was last revised on 2017. Testing performed by: [facility], [address] [place] [phone] Blood 08/30/2024 4:24 PM CHISEL GRINDER 08/30/2024 4:28 PM CHISEL GRINDER us Aj Simeon MD LAB BLOOD ORDERABLES Final R esult DAVION AGNIESZKA [facility] Department [place] [address] * Cardiolipin antibody, IgG (08/30/2024 4:24 PM CHISEL GRINDER) Cardiolipin, IgG 1.8 <=19.9 GPL U/mL Comment: [...] FADY. These results were obtained with the [employer] 2200 System. Cardiolipin IgG values obtained with different manufacturers' assay methods may not be used interchangeably. Current interpretive data was last revised on 2016. Blood 08/30/2024 4:24 PM CHISEL GRINDER 08/30/2024 5:56 PM CHISEL GRINDER us Aj Simeon MD LAB BLOOD ORDERABLES Final R esult DAVION [facility] Department [place] [address] * Beta 2 glycoprotein IgM Ab (08/30/2024 4:24 PM CHISEL GRINDER) [facility] Beta-2 glycoprotein I, IgM 8.3 <=19.9 units/mL [...] factor. These results were obtained with the [employer] 2200 System. Beta-2 GP1 IgM values obtained with different manufacturers' assay methods may not be used interchangeably. Current interpretive data was last revised on 2016. Blood 08/30/2024 4:24 PM CHISEL GRINDER 08/30/2024 5:56 PM CHISEL GRINDER Aj Simeon MD LAB BLOOD ORDERABLES Final R esult Performing Organization Address [facility] Co de Phone Number DAVION [facility] [place] [address] * Beta 2 glycoprotein IgG Ab (08/30/2024 4:24 PM CHISEL GRINDER) [facility] Beta-2 glycoprotein I, IgG 1.8 <=19.9 units/mL Comment: Interpretive Data Negative: <20 U/mL Positive: > or = 20 U/mL Beta-2 glycoprotein 1 (Beta-2 GP1) antibodies are a more specific marker of thrombotic risk. It is expected that some samples will be ACL positive and Beta- 2 [id number]. In order to improve specificity, the International Congress on Antiphospholipid Antibodies recommends Beta-2 GP1 antibodies of IgG or IgM isotype (> the 99th percentile), obtained twice, at least 12 weeks apart, to support a diagnosis of antiphospholipid syndrome. The cutoff for this assay was developed from data based on the 99th percentile. These results were obtained with the [employer] System. Beta 2GP1 IgG values obtained with different manufacturers' assay methods may not be used interchangeably. Current interpretive data was last revised on 2016. Blood 08/30/2024 4:2 4 PM CHISEL GRINDER 08/30/2024 5:56 PM CHISEL GRINDER Aj Simeon MD LAB BLOOD ORDERABLES Final R esult Performing Organization Address [facility] Co de Phone Number DAVION [facility] Department [place] [address] * (ABNORMAL) Iron profile w/ IBC (08/30/2024 4:24 PM CHISEL GRINDER) [facility] Iron 31(L) 35 - 145 mcg/dL TIBC 202(L) 250 - 400 mcg/dL [facility] Transferrin saturation 15(L) 20 - 50 % [facility] Blood 08/30/2024 4:24 PM CHISEL GRINDER 08/30/2024 5:09 PM CHISEL GRINDER us Aj Simeon MD LAB BLOOD ORDERABLES Final R esult DAVION AARON [facility] Department [place] [address] * (ABNORMAL) CBC with auto differential (08/30/2024 4:24 PM CHISEL GRINDER) WBC 9.7 3.8 - 9.9 K/cumm Comment:Testing performed by : [facility], [address] [place] [address] Hgb 12.1 11.9 - 15.5 g/dL DAVION AARON Comment:Testing performed by : [facility], [address] [place] [address] Hct 36.3 35.6 - 45.5 % DAVION AARON Comment:Testing performed by : [facility], [address] [place] [address] Plt 402(H) 150 - 400 K/cumm CERRJ AARON Comment:Testing performed by : [facility], [address] [place] [address] MPV 8.6 6.8 - 10.4 fL CERRJ AARON Comment:Testing performed by : [facility], [address] [place] [address] RBC 4.55 3.90 - 5.20 M/cumm DAVION AARON Comment:Testing performed by : [facility], [address] [place] [address] MCV 79.8(L) 81.3 - 96.4 fL CERRJ BJ Comment:Testing performed by : [facility], [address] [place] [address] MCH 26.6(L) 27.1 - 33.3 pg CERRJ BJ Comment:Testing performed by : [facility], [address] [place] [address] MCHC 33.4 32.3 - 35.7 g/dL CERRJ [facility] Comment:Testing performed by : [facility], [address] [place] [phone] RDW CV 14.0 11.1 - 14.9 % DAVION [facility] Comment:Testing performed by : [facility], [address] [place] [phone] NRBC abs 0.00 0.00 - 0.01 K/cumm DAVION [facility] Comment:Testing performed by : [facility], [address] [place] [phone] Blood 08/30/2024 4:24 PM CHISEL GRINDER 08/30/2024 4:28 PM CHISEL GRINDER Aj Simeon MD LAB BLOOD ORDERABLES Final R esult Performing Organization Address [facility] Co de Phone Number [facility] [place] [address] * Von Willebrand factor antigen (08/30/2024 4:24 PM CHISEL GRINDER) Pathologist [facility] vWF antigen 116 55 - 200 %norm Comment: Interpretive Data vWF Ag results may be negatively biased when rheumatoid factor levels are >50 IU/ml. Current interpretive data was last revised 2024. Blood 08/30/2024 4:24 PM CHISEL GRINDER 08/30/2024 5:09 PM CHISEL GRINDER Aj Simeon MD LAB BLOOD ORDERABLES Final R esult Performing Organization Address [facility] Co de Phone Number [facility] [place] [address] * Cardiolipin antibody, IgM (08/30/2024 4:24 PM CHISEL GRINDER) Pathologist [facility] Cardiolipin, IgM 13.5 <=19.9 MPL U/mL Comment: [...] antibodies. These results were obtained with the [employer] 2200 System. Cardiolipin IgM values obtained with different manufacturers' assay methods may not be used interchangeably. Current interpretive data was last revised on 2016. Blood 08/30/2024 4:24 PM CHISEL GRINDER 08/30/2024 5:56 PM CHISEL GRINDER us Aj Simeon MD LAB BLOOD ORDERABLES Final R esult DAVION [facility] Department [place] [address] * Von Willebrand factor activity (08/30/2024 4:24 PM CHISEL GRINDER) Pathologist [facility] vWF activity 98 50 - 180 %norm [...] test (vWF GP1bM) will be sent to [facility] in [place], [place] (3). 1. Son ENCARNACION, yasmani JENKINS. A new automated screening assay for the diagnosis of von Willebrand disease. Am J Clin Path. 2007; 127:730-5. 2. Alyson D, Linda JI, Tano BJ, Katelyn RK, Kelin WL, Magda JA. Validation of an automated latex particle-enhanced immunoturbidimetric von Willebrand factor activity assay. J Thromb Haemost. 2011; 9:1300-1471. 3. Eboni Gill, et al. A comparative analysis of different automated von Willebrand factor glycoprotein 1b-binding activity assays in well-typed von Willebrand disease patients. J Thromb Haemost 2018;16:1268-77. Current interpretive data was last revised on 2021. Blood 08/30/2024 4:24 PM CHISEL GRINDER 08/30/2024 5:09 PM CHISEL GRINDER us Aj Simeon MD LAB BLOOD ORDERABLES Final R esult Performing Organization Address [facility] de Phone Number [facility] [place] [address] * (ABNORMAL) aPTT (08/30/2024 4:24 PM CHISEL GRINDER) aPTT 44(H) 28 - 38 sec Comment: Interpretive Data Heparin therapeutic range: 66.0 - 100.0 seconds. Range based on correlation with therapeutic heparin activity range of 0.3 - 0.7 Units/mL. Current interpretive data was last revised on 2023. Blood 08/30/2024 4:24 PM CHISEL GRINDER 08/30/2024 5:09 PM CHISEL GRINDER us Aj Simeon MD LAB BLOOD ORDERABLES Final R esult Performing Organization Address [facility] Co de Phone Number [facility] [place] [address] * Protime-INR (08/30/2024 4:24 PM CHISEL GRINDER) PT 11.8 9.7 - 13.0 sec INR 1.09 0.90 - 1.20 [facility] Comment: Interpretive data Oral anticoagulant therapeutic ranges: Venous thromboembolism prophylaxis or treatment: 2.0-3.0 CARDIOLOGY Standard range: 2.0-3.0 High-intensity range: 2.5-3.5 Refer to indication-specific guidelines for appropriate target ranges for prosthetic heart valve replacement. Current interpretive data was last revised on 2019. Blood 08/30/2024 4:24 PM CHISEL GRINDER 08/30/2024 5:09 PM CHISEL GRINDER Aj Simeon MD LAB BLOOD ORDERABLES Final R esult Performing Organization Address [facility] de Phone Number [place] [address] * (ABNORMAL) Fibrinogen (08/30/2024 4:24 PM CHISEL GRINDER) Pathologist [facility] Fibrinogen 450(H) 170 - 400 mg/dL Blood 08/30/2024 4:24 PM CHISEL GRINDER 08/30/2024 5:09 PM CHISEL GRINDER Aj Simeon MD LAB BLOOD ORDERABLES Final R esult Performing Organization Address [facility] [place] [address] * Factor XI activity (08/30/2024 4:24 PM CHISEL GRINDER) Factor XI activity 104 60 - 140 %norm Blood 08/30/2024 4:24 PM CHISEL GRINDER 08/30/2024 5:09 PM CHISEL GRINDER Aj Simeon MD LAB BLOOD ORDERABLES Final R esult Performing Organization Address City/[facility] Co de Phone Number [facility] [place] [address] * Factor IX activity (08/30/2024 4:24 PM CHISEL GRINDER) Factor IX activity 124 55 - 160 %norm Blood 08/30/2024 4:24 PM CHISEL GRINDER 08/30/2024 5:09 PM CHISEL GRINDER Aj Simeon MD LAB BLOOD ORDERABLES Final R esult Performing Organization Address [facility] [place] [address] * Factor VIII activity (08/30/2024 4:24 PM CHISEL GRINDER) Factor VIII activity 122 45 - 160 %norm Blood 08/30/2024 4:24 PM CHISEL GRINDER 08/30/2024 5:09 PM CHISEL GRINDER us Aj Simeon MD LAB BLOOD ORDERABLES Final R esult Performing Organization Address City/[facility] Co de Phone Number [facility] [place] [address] * Magnesium (08/30/2024 4:24 PM CHISEL GRINDER) Magnesium 2.0 1.4 - 2.5 mg/dL Blood 08/30/2024 4:24 PM CHISEL GRINDER 08/30/2024 5:09 PM CHISEL GRINDER Aj Simeon MD LAB BLOOD ORDERABLES Final R esult Performing Organization Address City/[facility] [place] [address] * Ferritin (08/30/2024 4:24 PM CHISEL GRINDER) Ferritin 29 13 - 150 ng/mL Blood 08/30/2024 4:24 PM CHISEL GRINDER 08/30/2024 5:09 PM CHISEL GRINDER us Aj Simeon MD LAB BLOOD ORDERABLES Final R esult [facility] Department [place] [address] * Comprehensive metabolic panel (08/30/2024 4:24 PM CHISEL GRINDER) Pathologist [facility] Sodium 142 135 - 145 mmol/L Potassium, pl 3.9 3.3 - 4.9 mmol/L [facility] Chloride 105 97 - 110 mmol/L [facility] CO2 28 22 - 32 mmol/L [facility] Anion gap 9 2 - 15 mmol/L [facility] BUN 6 6 - 25 mg/dL [facility] Creatinine 0.93 0.60 - 1.10 mg/dL [facility] Glucose 92 70 - 199 mg/dL [facility] Comment: Interpretive Data Fasting glucose >/= [...] classification and Diagnosis of Diabetes Diabetes Care 202; 46: S19-S40. Current interpretive data was last revised 2022. Calcium 9.4 8.5 - 10.3 mg/dL [facility] Bilirubin, total 0.3 0.1 - 1.2 mg/dL [facility] Protein, pl 7.2 6.5 - 8.5 g/dL [facility] Albumin 4.0 3.5 - 5.0 g/dL [facility] Alk phos 75 40 - 130 Units/L [facility] ALT 10 7 - 45 Units/L [facility] AST 17 10 - 45 Units/L [facility] Blood 08/30/2024 4:24 PM CHISEL GRINDER 08/30/2024 5:09 PM CHISEL GRINDER us Aj Simeon MD LAB BLOOD ORDERABLES Final R esult [facility] Department [place] [address] * Surgical pathology (07/27/2024 9:35 AM CHISEL GRINDER) Tissue (Endometrial biopsy) 07/27/2024 9:35 AM CHISEL GRINDER 07/28/2024 7:09 AM CHISEL GRINDER Narrative PATHOLOGY [facility] - 08/01/2024 3:36 PM CHISEL GRINDER EPIC results best viewed via link to PDF [facility] [place] [address] Note to Patients: This report may contain [...] Gender: F : 1985 (Age: 38) Address: [address] [place] [address] Hospital #: [id number] Taken:07/27/2024 Received:07/28/2024 Reported: 08/01/2024 Patient Type: [facility] SPECIMEN Service: Obstetrics [facility] Location: Physician(s): Yelena Henley M.D. 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 Labeled A1. Jar 0. elsw/07/28/2024 11:35 PA(s): Veronika Vidales By this signature, I attest that the above diagnosis is based upon my personal examination of the slides(and/or other material). Addenda/Procedures The performance characteristics of some immunohistochemical stains, fluorescence in-situ hybridization tests and immunophenotyping by flow cytometry cited in this report (if any) were determined by the Surgical Pathology and Flow Cytometry Departments at [facility] as part of an ongoing chief vendor quality program and in compliance with federally mandated [...] Surgical Pathology and Flow Cytometry Departments of [facility]. It has not been cleared or approved by the [place]. S. Food and Drug Administration. IMAGES AND SCANNED DOCUMENTS, IF INCLUDED, ONLY VIEWABLE IN PDF VERSION OF REPORT Yelena Henley MD LAB PATHOLOGY ORDERAB LES Final Result PATHOLOGY [facility] 3rd Floor [place], [place] [phone] * POCT hCG, urine (07/27/2024 9:07 AM CHISEL GRINDER) HCG, ur, POC Negative Negative Lot Number [id number] QC Backgroud Clear Acceptable QC Control Line Acceptable Urine 07/27/2024 9:07 AM CHISEL GRINDER Yelena Henley MD POINT OF CARE TEST OR DERABLES Final Result * Screening Mammogram Bilateral W [place] (07/13/2024 3:17 PM CHISEL GRINDER) Anatomical Region Laterality Modality Breast Bilateral Mammography Impressions 07/13/2024 3:25 PM CHISEL GRINDER BI-RADS ATLAS category (overall): 1 - Negative There is no mammographic evidence of malignancy. A 1 year screening mammogram is recommended. The patient has been or will be contacted. We recommend annual screening mammography for women at average risk of breast cancer beginning at age 40, based on guidelines of the [employer] (ACR Practice Parameter for the Performance of Screening and Diagnostic Mammography) and [employer]. For women with and elevated risk of breast cancer, please refer to the ACR Practice Parameter for specific screening recommendations. The patient will be entered into a reminder system with a target due date of 1 year for her next screening exam. 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
--- OUTSIDE RECORDS SUMMARY | 2024-09-22 06:51 | XMS_ITS | Clinical Summary ---
Author Organization [facility] Address [address] [place] [address] Care Team Providers Care [employer] Path[employer] Teacher Name Role Phone Demetrio Kirby DO Primary Care Provider [phone] Allergies Active Allergy Reactions Criticality Noted Date Comments Tape Hives 07/15/2022 Paper tape ok, all other types of tape remove layer of skin Sulfa Antibiotics Hives 07/15/2022 Medications IRON CR OR Take 65 mg by mouth daily. Active vitamin D3, cholecalciferol, 1000 UNIT Tab tablet Take 1 tablet (25 mcg total) by mouth daily. Active Cyanocobalamin (VITAMIN B-12) 50 MCG Tab Take 50 mcg by mouth daily. Active valACYclovir (VALTREX) 1 g tabletIndication s:Fever blister Take 1 tablet (1,000 mg total) by mouth 2 (two) times daily. 30 tablet 01/04/2024 Active Active Problems No known active problems Immunizations Name Administration Dates Next Due Dtap (Generic) 11/04/2017 Influenza Adult (Generic) 03/31/2022,05/16/2021 MMR (MMRII) 11/24/2018 MODERNA COVID-19 (12+) MRNA, LNP-S, PF, 100 MCG/ 0.5 ML DOSE 03/31/2022 MODERNA COVID-19 (TECHNICAL WRITER AND EDITOR JOHN JAVED), MRNA, LNP-S, PF, 50 MCG/ 0.25 ML DOSE 05/16/2021 Tdap (Generic) 03/03/2018 Family History Medical History Relation Comments Hyperlipidemia Father Hypertension Father Fibromyalgia Mother Relation Status Comments Father Alive Mother Alive Social History Tobacco Use Types Packs/Day Years Used Date Smoking Tobacco: Former Cigarettes Q uit: 2013 Passive Smoke Exposure: Never Smokeless Tobacco: Never Comments:Social smoker 10 ye ars ago Alcohol Use Standard Drinks/Week Comments Not Currently 0 (1 standard drink = 0.6 oz pur e alcohol) 1-2 drink per mo PHQ-2 Answer Date Recorded Patient Health Questionnaire-2 Score 0 01/04/2024 Comments No Sex and Gender Information Value Date Recorded Sex Assigned at Not on file Legal Sex Female 8:06 PM CDT Gender Identity Not on file Sexual Orientation Not on file Last Filed Vital Signs Vital Sign Reading Time Taken Comments Blood Pressure 136/66 01/04/2024 8:14 AM CDT Pulse 72 01/04/2024 8:14 AM CDT Temperature 36.6 C (97.9 F) 01/04/2024 8:14 AM CDT Respiratory Rate 20 01/04/2024 8:14 AM CDT Oxygen Saturation 99% 01/04/2024 8:14 AM CDT Inhaled Oxygen Concentration - - Weight 152.4 kg (336 lb) 01/04/2024 8:14 AM CDT Height 170.2 cm (5' 7 ) 01/04/2024 8:14 AM CDT Body Mass Index 52.63 01/04/2024 8:14 AM CDT Plan of Treatment Health Maintenance Due Date Last Done Comments Cervical Cancer Screening Pap Smear (Age 30 to 64) Every 3 Years 1985 Annual Physical 10/15/1986 Hepatitis C 10/15/2001 Hepatitis B Vaccines (1 of 3 - 19+ 3-dose series) 10/15/2002 Cervical Cancer Screening Pap with HPV Testing (Age 30 to 64) Every 5 Years 10/15/2013 Cervical Cancer Screening with HPV 10/15/2013 Mammogram Screening 2023 COVID-19 Vaccine ( season) 2024 03/31/2022, 03/31/2022, 05/16/2021, Additional history exists Influenza Adult (#1) 2024 03/31/2022, 05/16/20 21 PHQ-2 (Physician [place]) 06/28/2024 01/04/2024 DTaP, Tdap and Td Vaccines (3 - Td or Tdap) 03/03/2028 03/03/2018, 11/04/2017 HPV Vaccines Aged Out No longer eligi ble based on patient's age to complete this topic Meningococcal B Vaccine Aged Out No l onger eligible based on patient's age to complete this topic Meningococcal Vaccine Aged Out No terrell jace eligible based on patient's age to complete this topic Pneumococcal Vaccine: Pediatrics (0 to 5 Years) and At-Risk Patients (6 to 64 Years) Aged Out No longer eligible based on patient's age to complete this topic RSV Immunizations Under 20 Months Aged Out No longer eligible based on patient's age to complete this topic [place] [address] [place] [address] Care Teams [employer] Pathology Teacher Relationship Specialty Start Date End Date Demetrio Kirby DO [address] [facility] [address] [place] [address] PCP - General INTERNAL MEDICINE 07/24/22
== END 2024-09-22 06:47 | disposition home or self-care (01) ==
LOC: ANHIMG 06:49
PROVIDERS: PCP Internal Medicine; Visit Provider Clinical Nurse Specialist
DX: G43.909 Migraine, unspecified, not intractable, without status migrainosus (principal); D68.62 Lupus anticoagulant syndrome; R70.0 Elevated erythrocyte sedimentation rate; R79.82 Elevated C-reactive protein (CRP)
CPT/HCPCS: 70553; A9579